=== PATIENT | female | born 1960 ===

== ENCOUNTER 2022-08-14 15:48 | Outpatient (REF) | payer MEDICAID, SELFPAY ==
--- NOTE | ~2022-08-14 | XR_ITS ---
EXAMINATION: XR KNEE, LEFT CLINICAL INFORMATION: Left knee pain COMPARISON: None TECHNIQUE: Two views of the left knee. FINDINGS: No fracture or joint effusion. Alignment is anatomic. Small tricompartmental marginal osteophytes and mild loss of joint space thickness in the medial compartment. No joint effusion. No abnormal soft tissue calcification. XR/XR knee LT 2V IMPRESSION: * No acute findings. * Mild degenerative changes as described.
== END 2022-08-14 15:49 | disposition home or self-care (01) ==
LOC: HO.XRAY 15:48
PROVIDERS: PCP Internal Medicine; Visit Provider Internal Medicine
DX: M25.562 Pain in left knee (principal); G89.29 Other chronic pain
CPT/HCPCS: 73560

== ENCOUNTER 2023-07-26 09:38 | Outpatient (AMB) | payer MEDICAID, SELFPAY ==
--- NOTE | 2023-07-26 10:07 | A.OFFVIS_ITS ---
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 Patient's son was translating for her and she stated ongoing pain for many year with history of injections. Patient has tried and failed 3 + months of tylenol and ibuprofen. No hx of surgery or injury. Both knees are equal to pain per patient. Pain is focused all over the knees. Patient has gotten and injection many years ago with the first one giving her 10 years of relief per patient. She has gotten an other injection from her PCP which gave her a week of relief. 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 The patient reports chronic pain for many years. She has tried and failed 3+ months of Tylenol and Ibuprofen use. She does not recall any injury to the bilateral knees. She reports the left knee is worse then the right knee. She states the pain is through out the entire knee. She reports a history of cortisone injections; the first injection gave her about 10 years of relief and the second injection which was given to her about a month ago, in 06/2023 by her PCP, gave her about 10 days of relief. Patient is accompanied by her son who is translating for her. Review of Systems Const All systems reviewed & are unremarkable except as noted in HPI and below Physical Exam Const General: cooperative and no acute distress Orientation/consciousness: patient oriented x3 Resp Effort & Inspection: normal respiratory effort and able to speak in complete sentences Cardio Peripheral pulses: Peripheral pulses 2+ throughout Skin General skin exam: no rashes or lesions noted Neuro General: patient oriented x3 Extrem Other: Bilateral knees: Normal to inspection. No ecchymosis, erythema, or joint effusion. No tenderness to palpation to the medial or lateral joint lines. Full knee extension and flexion. Crepitus felt with ROM. NVI. Assessment & Plan Assessment & Plan (1) Osteoarthritis of right knee: Code(s): M17.11 - Unilateral primary osteoarthritis, right knee Qualifiers: Osteoarthritis type: unspecified Qualified Code(s): M17.11 - Unilateral primary osteoarthritis, right knee (2) Osteoarthritis of left knee: Code(s): M17.12 - Unilateral primary osteoarthritis, left knee Qualifiers: Osteoarthritis type: unspecified Qualified Code(s): M17.12 - Unilateral primary osteoarthritis, left knee Plan Ms. Walton is a 63-year-old female who presents in the office today, as a new patient, for an evaluation of bilateral knee pain. The patient reports chronic pain for many years. She has tried and failed 3+ months of Tylenol and Ibuprofen use. She does not recall any injury to the bilateral knees. She reports the left knee is worse then the right knee. She states the pain is through out the entire knee. She reports a history of cortisone injections; the first injection gave her about 10 years of relief and the second injection which was given to her about a month ago, in 06/2023 by her PCP, gave her about 10 days of relief. Patient is accompanied by her son who is translating for her. I offered the patient bilateral knee cortisone injections while in the office today but she has declined at this time stating the first gave her 10 years of relief, but the second which she received a month ago from her PCP gave her 10 days of relief. We discussed the role of Gel injections which she would like to move forward with at this time. Therefore the office will petition the insurance for approval. We did discuss the role of total knee arthroplasty which the patient would like to further discuss with her son who is here today as her chassis wirer. I educated that we would proceed with the left knee before the right knee. She was given Magdalena?s business card should she wish to move forward with surgical intervention she can contact the office. I did educate the patient should she want to move forward with surgery she will have to wait 3 months from the time she receives the Gel injection before she can proceed. Her and her son demonstrate understanding. I also provided the patient and her son a prescription for a walker to assist with ambulation. Follow up will be after insurance approval for Gel injections in the bilateral knees, or sooner if needed. X-rays of the bilateral knees which were obtained while in the office today and were reviewed by me, Malika Boyd PA-C, revealed bilateral knee osteoarthritis with the left being greater than the right. Orders: Orders XR knee RT 2V Today M25.569 - Pain in unspecified knee XR knee LT 2V Today M25.569 - Pain in unspecified knee XR knee standing BI Today M25.569 - Pain in unspecified knee Medications: New walker Folding front wheeled walker 1 ea 0RF Lt knee arthritis M17.12 - Unilateral primary osteoarthritis, left knee Patient Instructions: Scribed for Malika Boyd PA-C by Nika Dinh medical records tech, on 07/25/2023 at 9:53 am, EST. Coding Level of Care Code New Pt Level 4 (00892) Diagnoses Osteoarthritis of right knee, unspecified osteoarthritis type M17.11 Osteoarthritis type: unspecified Osteoarthritis of left knee, unspecified osteoarthritis type M17.12 Osteoarthritis type: unspecified
== END 2023-07-26 10:34 | disposition home or self-care (01) ==
PROVIDERS: PCP Internal Medicine; Visit Provider Physician Assistant
DX: M17.0 Bilateral primary osteoarthritis of knee (principal)
CPT/HCPCS: 99204

== ENCOUNTER 2023-07-26 13:09 | Outpatient (REF) | payer MEDICAID, SELFPAY ==
--- NOTE | ~2023-07-26 | XR_ITS ---
EXAMINATION: X-RAY KNEE STANDING BILATERAL. LATERAL AND SUNRISE VIEW X-RAY OF RIGHT AND LEFT KNEES. CLINICAL INFORMATION: Bilateral knee pain. COMPARISON: Left knee x-ray on 08/14/2022. TECHNIQUE: Standing frontal x-ray of bilateral knees, frontal and sunrise view X-rays of right and left knees FINDINGS: BONES: Bony structures are intact. Sharp osteophytes are seen in superior and lateral right patellar articular border. Small osteophyte is seen in superior left patellar articular border. There is no focal bone destruction or periosteal reaction seen. JOINTS: Alignment of joints is normal. There is severe loss of medial compartment left tibiofemoral joint space. There is moderate decrease in medial compartment right knee joint space. SOFT TISSUE: Soft tissue is normal. No radiopaque foreign body or abnormal air collection is seen. XR/XR knee LT 2V IMPRESSION: 1. Bilateral medial compartment tibiofemoral joint and patellofemoral joint degenerative arthritis, left greater than right, most severe in the medial compartment of the left knee. Unchanged advanced medial compartment left tibiofemoral joint osteoarthritis. 2. No acute bony abnormality.
--- NOTE | ~2023-07-26 | XR_ITS ---
EXAMINATION: X-RAY KNEE STANDING BILATERAL. LATERAL AND SUNRISE VIEW X-RAY OF RIGHT AND LEFT KNEES. CLINICAL INFORMATION: Bilateral knee pain. COMPARISON: Left knee x-ray on 08/14/2022. TECHNIQUE: Standing frontal x-ray of bilateral knees, frontal and sunrise view X-rays of right and left knees FINDINGS: BONES: Bony structures are intact. Sharp osteophytes are seen in superior and lateral right patellar articular border. Small osteophyte is seen in superior left patellar articular border. There is no focal bone destruction or periosteal reaction seen. JOINTS: Alignment of joints is normal. There is severe loss of medial compartment left tibiofemoral joint space. There is moderate decrease in medial compartment right knee joint space. SOFT TISSUE: Soft tissue is normal. No radiopaque foreign body or abnormal air collection is seen. XR/XR knee standing BI IMPRESSION: 1. Bilateral medial compartment tibiofemoral joint and patellofemoral joint degenerative arthritis, left greater than right, most severe in the medial compartment of the left knee. Unchanged advanced medial compartment left tibiofemoral joint osteoarthritis. 2. No acute bony abnormality.
--- NOTE | ~2023-07-26 | XR_ITS ---
EXAMINATION: X-RAY KNEE STANDING BILATERAL. LATERAL AND SUNRISE VIEW X-RAY OF RIGHT AND LEFT KNEES. CLINICAL INFORMATION: Bilateral knee pain. COMPARISON: Left knee x-ray on 08/14/2022. TECHNIQUE: Standing frontal x-ray of bilateral knees, frontal and sunrise view X-rays of right and left knees FINDINGS: BONES: Bony structures are intact. Sharp osteophytes are seen in superior and lateral right patellar articular border. Small osteophyte is seen in superior left patellar articular border. There is no focal bone destruction or periosteal reaction seen. JOINTS: Alignment of joints is normal. There is severe loss of medial compartment left tibiofemoral joint space. There is moderate decrease in medial compartment right knee joint space. SOFT TISSUE: Soft tissue is normal. No radiopaque foreign body or abnormal air collection is seen. XR/XR knee RT 2V IMPRESSION: 1. Bilateral medial compartment tibiofemoral joint and patellofemoral joint degenerative arthritis, left greater than right, most severe in the medial compartment of the left knee. Unchanged advanced medial compartment left tibiofemoral joint osteoarthritis. 2. No acute bony abnormality.
== END 2023-07-26 13:10 | disposition home or self-care (01) ==
LOC: HO.HOSX 13:09
PROVIDERS: Visit Provider Physician Assistant
DX: M17.0 Bilateral primary osteoarthritis of knee (principal)
CPT/HCPCS: 73560; 73565; 99212

== ENCOUNTER 2023-08-01 09:43 | Outpatient (AMB) | payer MEDICAID, SELFPAY ==
--- NOTE | 2023-08-01 09:46 | MHC.OFFVIS ---
Intake Intake Visit Reasons: Bilateral Knee SynviscOne Gel Injection Intake Note: Marisela is a 63 year old female who presents today for her bilateral knee SynviscOne gel injections. HPI Bilateral Knee SynviscOne Gel Injection HPI Details 63-year-old female, who is [place] speaking, presents in the office today for a follow up of bilateral knee osteoarthritis and to obtain a synvisc one gel injection. I last saw the patient on 07/26/2023 when the office requested insurance authorization for Gel injections, which has been obtained. Review of Systems Const All systems reviewed & are unremarkable except as noted in HPI and below Physical Exam Const General: cooperative, healthy appearing and no acute distress Resp Effort & Inspection: normal respiratory effort and able to speak in complete sentences Cardio Rate: regular rate Peripheral pulses: Peripheral pulses 2+ throughout GI Palpation (GI): Soft to palpation Skin Lesions: no lesions Rashes: no rashes Extrem Other: Bilateral knees: Normal to inspection. No ecchymosis, erythema, or joint effusion. No tenderness to palpation to the medial or lateral joint lines. Full knee extension and flexion. Crepitus felt with ROM. NVI. Office Procedures Joint Injection/Drain Joint Injection/Drain Primary Site: right knee Secondary Site: left knee Prep: site was prepped using aseptic technique, ethochloride spray was applied and injection warnings given Injected: other (Synvisc One) Approach Used: anterolateral Procedure: The patient tolerated the procedure well, but had some pain with the injection and there was some relief with the local anesthesia Coding 08148 - Large joint Procedure code (CPT) selection complete Assessment & Plan Assessment & Plan (1) Osteoarthritis of right knee: Code(s): M17.11 - Unilateral primary osteoarthritis, right knee Qualifiers: Osteoarthritis type: unspecified Qualified Code(s): M17.11 - Unilateral primary osteoarthritis, right knee (2) Osteoarthritis of left knee: Code(s): M17.12 - Unilateral primary osteoarthritis, left knee Qualifiers: Osteoarthritis type: unspecified Qualified Code(s): M17.12 - Unilateral primary osteoarthritis, left knee Plan Ms. Walton is a 63-year-old female, who is [place]an speaking, presents in the office today for a follow up of bilateral knee osteoarthritis and to obtain a synvisc one gel injection . I last saw the patient on 07/26/2023 when the office requested insurance authorization for Gel injections, which has been obtained. The patient was offered a Synvisc One gel injection in the bilateral knees. The patient was explained the risk, benefits, and alternatives to receiving this injection. After receiving consent for the injection, the patient had the procedure done while in office today. The patient tolerated the procedure well with no complications. Follow up will be PRN, or sooner if needed. Patient Instructions: Scribed for Malika Boyd PA-C by Nika Dinh medical review specialist, on 08/01/2023 at 9:45 am, EST. Coding Level of Care Code Procedure Only Diagnoses Osteoarthritis of right knee, unspecified osteoarthritis type M17.11 Osteoarthritis type: unspecified Osteoarthritis of left knee, unspecified osteoarthritis type M17.12 Osteoarthritis type: unspecified CPT Codes Coding - 92131 Large joint: 70841 - Large joint ([id number])
== END 2023-08-01 11:01 | disposition home or self-care (01) ==
PROVIDERS: PCP Internal Medicine; Visit Provider Physician Assistant
DX: M17.0 Bilateral primary osteoarthritis of knee (principal)
CPT/HCPCS: 20610

== ENCOUNTER → 2023-08-01 09:43 | Outpatient (BNVA) | payer MEDICAID, SELFPAY | PROVIDERS: PCP Internal Medicine; Visit Provider Physician Assistant | DX: M17.0 Bilateral primary osteoarthritis of knee (principal) | CPT/HCPCS: 20610; J7325 ==

== ENCOUNTER 2023-08-26 09:15 | Outpatient (AMB) | payer MEDICAID, SELFPAY ==
--- NOTE | 2023-08-25 13:47 | MHC.OFFVIS ---
Intake Vital Signs 08/26/23 09:21 Height 5 ft 2 in Weight 229 lb 4.492 oz BMI 41.9 Intake Visit Reasons: Discuss RT TKA Intake Note: Marisela is a 73 year old botswanan speaking female who presents today with her son to discuss possible surgery for the right knee, Right TKA Synvisc One 08/01/23, this injection has been mildly helpful Allergies No Known Allergies Allergy (Verified 08/26/23 09:18) HPI Discuss RT TKA HPI Details This is a 63 yo F with bilateral knee OA. She has had injections of steroid and gel but with only minimal relief. She is here today with her son. She cannot walk comfortably and has pain with all daily activities. She would like to walk and garden and use her pool but she cannot. Review of Systems Const All systems reviewed & are unremarkable except as noted in HPI and below Physical Exam Vital Signs: BMI result Body Mass Index 41.9 Const General: no acute distress, alert and awake Orientation/consciousness: patient oriented x3 HEENT Head: Yes normocephalic and Yes atraumatic Eyes EOM: EOMs intact bilaterally Resp Effort & Inspection: normal respiratory effort and able to speak in complete sentences Cardio Jugular venous distension: no JVD Skin General skin exam: turgor normal Rashes: no rashes Neuro General: patient oriented x3 Extrem Other: 5-115 bilateral knees with sharp medial and anterior compartment ttp bilaterally although right > left. She has gait antalgia 2 + DP bilaterally Psych Appearance: grossly normal Affect: normal affect Attitude: cooperative Results Reviewed Results Reviewed: I personally reviewed relevant radiographs. Severe left knee OA most prominently affecting the medial compartment Severe right knee OA most prominently affecting the PF joint Assessment & Plan Assessment & Plan (1) Osteoarthritis of left knee: Code(s): M17.12 - Unilateral primary osteoarthritis, left knee Qualifiers: Osteoarthritis type: unspecified Qualified Code(s): M17.12 - Unilateral primary osteoarthritis, left knee Plan: Severe OA. Arthroplasty indicated but right is more painful. (2) Osteoarthritis of right knee: Code(s): M17.11 - Unilateral primary osteoarthritis, right knee Qualifiers: Osteoarthritis type: unspecified Qualified Code(s): M17.11 - Unilateral primary osteoarthritis, right knee Plan: Left knee with severe OA. She has pain with all activity and her ambulatory capacity is limited. I discussed treatment options with her. She feels that nothing has helped and she would like to be more active. I recommend right knee arthroplasty. I discussed this with her in detail. I explained and discussed the risks benefits and alternatives including but not limited to the risk of pain, infection, stiffness, need for further surgery as well as potential medical complications such as blood clots, pulmonary embolism and cardiac complications. She understands this and would like to proceed forward. Coding Level of Care Code Est Pt Level 4 (28303) Diagnoses Osteoarthritis of left knee, unspecified osteoarthritis type M17.12 Osteoarthritis type: unspecified Osteoarthritis of right knee, unspecified osteoarthritis type M17.11 Osteoarthritis type: unspecified
[2023-08-26 09:21] VITALS: BMI 41.9
== END 2023-08-26 10:24 | disposition home or self-care (01) ==
PROVIDERS: PCP Internal Medicine; Visit Provider Orthopaedic Surgery
DX: M17.0 Bilateral primary osteoarthritis of knee (principal)
CPT/HCPCS: 99214

== ENCOUNTER → 2023-08-26 09:15 | Outpatient (BNVA) | payer MEDICAID, SELFPAY | PROVIDERS: PCP Internal Medicine; Visit Provider Orthopaedic Surgery | DX: M17.12 Unilateral primary osteoarthritis, left knee (principal); M17.11 Unilateral primary osteoarthritis, right knee | CPT/HCPCS: 99212 ==

== ENCOUNTER → 2023-10-07 10:04 | Outpatient (BNVA) | payer MEDICAID, SELFPAY | PROVIDERS: PCP Internal Medicine; Visit Provider Orthopaedic Surgery ==

== ENCOUNTER → 2023-10-07 10:04 | Outpatient (BNVA) | payer MEDICAID, SELFPAY | PROVIDERS: PCP Internal Medicine; Visit Provider Orthopaedic Surgery ==

== ENCOUNTER 2023-10-16 14:53 | Outpatient (REF) | payer MEDICAID, SELFPAY ==
[2023-10-16 17:51] LABS: MANUAL DIFF FLAG NO
[2023-10-16 18:10] LABS: INTERNATIONAL NORM RATIO 0.9 (0.9-1.1)
[2023-10-16 18:18] LABS: Basophils Percent Auto 0.3 % (0-2); Eosinophils Absolute Auto 0.2 X10*3/uL (0.0-0.4); Eosinophils Percent Auto 2.2 % (0-4); Hematocrit 36.2 % (37.0-47.0); Hemoglobin 11.9 g/dl (12.0-16.0); Imm Gran Abs Auto 0.03 X10*3/uL (0.00-0.03); Imm Gran Pct Auto 0.4 % (0.0-0.4); Lymphocytes Percent Auto 28.1 % (20-40); Mean Corpuscular HGB Conc 32.9 g/dl (31.0-35.0); Mean Corpuscular Hemoglobin 26.9 pg (27.0-33.0); Mean Corpuscular Volume 81.7 fL (80.0-98.0); Mean Platelet Volume 10.3 fL (9.4-12.3); Monocytes Absolute Auto 0.4 X10*3/uL (0.1-1.2); Monocytes Percent Auto 5.5 % (2-11); Neutrophils Absolute Auto 4.4 x10*3/uL (2.0-8.3); Neutrophils Percent Auto 63.5 % (45-73); Platelet Count 323 X10*3/uL (160-400); Red Blood Count 4.43 X10*6/uL (4.20-5.50); Red Cell Distribution Width 13.1 % (11.0-16.0)
[2023-10-16 18:35] LABS: Alanine Aminotransferase 23 U/L (0-31); Albumin Level 3.9 g/dL (3.5-5.0); Alkaline Phosphatase 90 U/L (39-117); Anion Gap 11 (12-20); Aspartate Amino Transferase 24 U/L (5-31); Bilirubin Total 0.3 mg/dL (0.0-1.0); Blood Urea Nitrogen 21 mg/dL (9-16); Calcium 9.3 mg/dL (8.4-10.2); Carbon Dioxide 27 mmol/L (22-29); Chloride 104 mmol/L (96-108); Cholesterol 219 mg/dL (<200); Estimated Glomerular Filt Rate > 60; Glucose Random 237 mg/dL (60-115); HDL Cholesterol 40 mg/dL (>40); LDL Cholesterol Calculated 120 mg/dL (<100); Potassium 4.4 mmol/L (3.3-5.1); Sodium 138 mmol/L (135-145); Total Protein 7.8 g/dL (6.5-8.0); Triglycerides 297 mg/dL (<150)
[2023-10-16 18:51] LABS: TSH reflex Free T4 2.12 uIU/mL (0.32-4.0)
== END 2023-10-16 14:54 | disposition home or self-care (01) ==
LOC: HO.CHCLDS 14:53
PROVIDERS: Visit Provider Internal Medicine
DX: Z01.818 Encounter for other preprocedural examination (principal); E11.65 Type 2 diabetes mellitus with hyperglycemia; Z79.4 Long term (current) use of insulin
CPT/HCPCS: 36415; 80053; 80061; 84443; 85025; 85610; 85730

== ENCOUNTER 2023-12-31 15:20 | Outpatient (REF) | payer MEDICAID, SELFPAY ==
[2023-12-31 19:08] LABS: Hematocrit 35.9 % (37.0-47.0); Hemoglobin 12.1 g/dl (12.0-16.0); Mean Corpuscular HGB Conc 33.7 g/dl (31.0-35.0); Mean Corpuscular Hemoglobin 27.4 pg (27.0-33.0); Mean Corpuscular Volume 81.4 fL (80.0-98.0); Mean Platelet Volume 10.4 fL (9.4-12.3); Platelet Count 333 X10*3/uL (160-400); Red Blood Count 4.41 X10*6/uL (4.20-5.50); Red Cell Distribution Width 13.3 % (11.0-16.0); White Blood Count 7.9 X10*3/uL (4.8-10.8)
[2023-12-31 19:38] LABS: Alanine Aminotransferase 16 U/L (0-31); Albumin Level 4.3 g/dL (3.5-5.0); Alkaline Phosphatase 87 U/L (39-117); Anion Gap 14 (12-20); Aspartate Amino Transferase 14 U/L (5-31); Bilirubin Total 0.4 mg/dL (0.0-1.0); Blood Urea Nitrogen 13 mg/dL (9-16); Calcium 9.8 mg/dL (8.4-10.2); Carbon Dioxide 24 mmol/L (22-29); Chloride 105 mmol/L (96-108); Estimated Glomerular Filt Rate 58; Glucose Random 157 mg/dL (60-115); Potassium 4.8 mmol/L (3.3-5.1); Sodium 138 mmol/L (135-145)
[2024-01-01 07:09] LABS: Estimated Average Glucose 197 mg/dL; Hemoglobin A1c % 8.5 % (<6.0)
== END 2023-12-31 15:21 | disposition home or self-care (01) ==
LOC: HO.CHCLDS 15:20
PROVIDERS: Visit Provider Internal Medicine
DX: Z01.818 Encounter for other preprocedural examination (principal)
CPT/HCPCS: 36415; 80053; 83036; 85027

== ENCOUNTER 2024-01-23 09:05 | Outpatient (REF) | payer MEDICAID, SELFPAY ==
--- NOTE | ~2024-01-23 | XR_ITS ---
EXAMINATION: XR KNEE RIGHT XR KNEE RIGHT CLINICAL INFORMATION: The radiographs from 01/23/2024 were acquired with history of pain. The radiographs from 01/29/2024 were acquired with history of total knee arthroplasty. COMPARISON: 07/26/2023 TECHNIQUE: 01/23/2024 - This examination consists of lateral view and sunrise view of right knee as well as AP standing view of both knees. 01/29/2024 - This examination consists of AP and lateral views of the right knee. FINDINGS: The AP standing views show moderate loss of medial tibiofemoral joint space and osteophyte formation at each knee. At the right knee, there is severe narrowing of patellofemoral joint space with subchondral cystic change, osteophyte formation and mild lateral patellar subluxation. Trace amount of fluid is present in the suprapatellar compartment of the knee joint. The postoperative radiographs demonstrate anterior skin kyle, anterior soft tissue swelling and intra-articular gas from the total knee arthroplasty. There is anatomic alignment at patellofemoral and tibiofemoral compartments. No abnormal lucency or fracture around the hardware. XR/XR knee RT 3V IMPRESSION: * The radiographs from 01/23/2024 demonstrate tricompartmental osteoarthritis of the right knee. The joint degeneration was severe at the patellofemoral compartment and moderate at the medial tibiofemoral compartment. * The radiographs from 01/29/2024 were obtained after the total knee arthroplasty procedure. The prosthetic components are in normal position. No periprosthetic fracture.
== END 2024-01-23 09:06 | disposition home or self-care (01) ==
LOC: HO.HOSX 09:05
PROVIDERS: Visit Provider Physician Assistant
DX: M17.11 Unilateral primary osteoarthritis, right knee (principal)
CPT/HCPCS: 73562; 99212

== ENCOUNTER 2024-01-23 09:30 | Outpatient (AMB) | payer MEDICAID, SELFPAY ==
--- NOTE | 2024-01-23 09:42 | A.OFFVIS_ITS ---
Intake Visit Reasons: pre-op right TKA 01/29/24 with NE Intake Note: Marisela is a 64 year old female who presents today with her son for a pre op appointment for her right TKA 01/29/24 with NE. Allergies gabapentin Allergy (Mild, Verified 01/23/24 09:45) Hives HPI HPI pre-op right TKA 01/29/24 with NE: Details: 64-year-old female who presents in the office today for her preoperative history and physical exam prior to a right total knee arthroplasty to be performed on 01/29/[address] Gibson Rivera. Patient has an allergy history, as follows: -Gabapentin; hives Patient is currently taking, as follows: -Acetaminophen 1,000 mg PO QID PRN -Amlodipine 5 mg PO QAM -Aspirin 81 mg PO daily -Glipizide 10 mg PO BID -Insulin glargine 35 units subcut bedtime -Losartan 100 mg PO QAM -Omeprazole 20 mg PO daily -Rosuvastatin 20 mg PO daily Patient has a medical history, as follows: -Diabetes mellitus -GERD -Elevated cholesterol -Hypertension Patient has a surgical history, as follows: -Hx of left shoulder surgery -Hx of trabeculectomy PFSH Medical History (Updated 01/20/24 @ 13:49 by Ceci Colorado, SUMANTH) Numbness Snores Osteoarthritis Diabetes GERD (gastroesophageal reflux disease) Elevated cholesterol HTN (hypertension) Surgical History (Updated 01/20/24 @ 13:29 by Ceci Colorado, RN) Hx of shoulder surgery History of trabeculectomy Social History (Updated 01/20/24 @ 13:43 by Ceci Colorado, RN) Household Members: Family and Other Housing: House Are you a primary child daycare worker to a significant other at home: No Do you presently have visiting nurse or other home services: No Patient Tobacco Use Status: Never used Tobacco Use of substances other than those prescribed or required for medical reasons: No Have you been hit, kicked, punched, or otherwise hurt by someone within the past year? If so, by whom?: No Special agnes needs: No Agree to transfusion: Yes ( if needed yes ) Are you DNR?: No Advance Directives: No Advance Directives Information Provided: Yes Advance Directives on File: No Recently lost weight without trying: No Nutrition Risks: No Nutritional Risk Current occupational status: unemployed Review of Systems Const All systems reviewed & are unremarkable except as noted in HPI and below Physical Exam Const General: cooperative, healthy appearing, comfortable, no acute distress, well developed, alert and awake Orientation/consciousness: patient oriented x3 HEENT Head: Yes normal to inspection, Yes normocephalic and Yes atraumatic Eyes General: appearance normal, both eyes and all related structures EOM: EOMs intact bilaterally Neck Neck: Yes normal visual inspection and Yes no lymphadenopathy Resp Effort & Inspection: normal respiratory effort and able to speak in complete sentences Cardio Jugular venous distension: no JVD Rate: regular rate Peripheral pulses: Peripheral pulses 2+ throughout GI Inspection: Yes normal to inspection Palpation (GI): Soft to palpation Skin General skin exam: no rashes or lesions noted Rashes: no rashes Neuro General: patient oriented x3 Extrem Other: Right knee: Skin is clean, dry, and intact. 5-115 bilateral knees with sharp medial and anterior compartment ttp bilaterally although right > left. She has gait antalgia 2 + DP bilaterally Psych Appearance: grossly normal Mental Status: mental status grossly normal Affect: normal affect Attitude: cooperative Assessment & Plan Assessment & Plan (1) Osteoarthritis of right knee: Code(s): M17.11 - Unilateral primary osteoarthritis, right knee Category: Medical Qualifiers: Osteoarthritis type: unspecified Qualified Code(s): M17.11 - Unilateral primary osteoarthritis, right knee Plan Ms. Walton is a 64-year-old female who presents in the office today for her preoperative history and physical exam prior to a right total knee arthroplasty to be performed on 01/29/[address] Gibson Rivera. Patient has an allergy history, as follows: -Gabapentin; hives Patient is currently taking, as follows: -Acetaminophen 1,000 mg PO QID PRN -Amlodipine 5 mg PO QAM -Aspirin 81 mg PO daily -Glipizide 10 mg PO BID -Insulin glargine 35 units subcut bedtime -Losartan 100 mg PO QAM -Omeprazole 20 mg PO daily -Rosuvastatin 20 mg PO daily Patient has a medical history, as follows: -Diabetes mellitus -GERD -Elevated cholesterol -Hypertension Patient has a surgical history, as follows: -Hx of left shoulder surgery -Hx of trabeculectomy I discussed in detail the procedure and what to expect pre and post operatively. We discussed the risks, benefits and alternatives to the surgery and the rehabilitation course. The risks include infection, bleeding, nerve injury, ongoing pain, swelling, and stiffness, perioperative risk of injury to bones and soft tissues, and blood clots. I have answered all questions and with their understanding they have consented to move forward with a right total knee arthroplasty to be performed on 01/29/[address] Gibson Rivera. Follow-up will be at the post operative appointment on 02/17/2024 at 2:15 pm, or sooner if needed. X-rays were obtained in the office today for surgical planning. Orders: Orders XR knee RT 3V Today M25.569 - Pain in unspecified knee Patient Instructions: Scribed by Nika Dinh director medical safety, for Malika Boyd PA-C on 01/23/2024 at 9:42 am, EST. Coding Level of Care Code Global (27526) Diagnoses Osteoarthritis of right knee, unspecified osteoarthritis type M17.11 Osteoarthritis type: unspecified
== END 2024-01-23 10:00 | disposition home or self-care (01) ==
PROVIDERS: PCP Internal Medicine; Visit Provider Physician Assistant
DX: M17.11 Unilateral primary osteoarthritis, right knee (principal)
CPT/HCPCS: 99024

== ENCOUNTER 2024-01-29 06:47 | Inpatient (IN) | payer MEDICAID, SELFPAY ==
[2024-01-20 13:51] VITALS: BP 158/74; PULSE 93; RESP 16; O2SAT 96; BMI 40.3
--- NOTE | 2024-01-20 14:07 | HO.ANESPROP2 ---
Documented by User: Marizol Parham NP 01/27/24 14:43 HPI - Anesthesia Eval Consult details Narrative: 64yo F for Right Knee Replacement Total, 01/29/24 Medically optimized per PCP No recent illness No CP/SOB within limits of knee pain DM: ~110-120 GERD: ppi daily controls + Stop bang: moderate BENJIE risk PMFSH Active Problems Active Problems: All Active Problems Osteoarthritis of left knee (Acute) Osteoarthritis of right knee (Acute) Past Medical History Medical History Numbness Snores Osteoarthritis Diabetes GERD (gastroesophageal reflux disease) Elevated cholesterol HTN (hypertension) Family History Family history of problems with anesthesia: No Surgical History Surgical History Hx of shoulder surgery History of trabeculectomy History of Problems with Anesthesia: No Social History Social History Household Members: Family and Other Housing: House Are you a primary career counselor to a significant other at home: No Do you presently have visiting nurse or other home services: No Patient Tobacco Use Status: Never used Tobacco Use of substances other than those prescribed or required for medical reasons: No Have you been hit, kicked, punched, or otherwise hurt by someone within the past year? If so, by whom?: No Special agnes needs: No Agree to transfusion: Yes ( if needed yes ) Are you DNR?: No Advance Directives: No Advance Directives Information Provided: Yes Advance Directives on File: No Recently lost weight without trying: No Nutrition Risks: No Nutritional Risk Current occupational status: unemployed Meds Allergies Allergy/AdvReac Type Severity Reaction Status Date / Time gabapentin Allergy Mild Hives Verified 01/23/24 09:45 Home Medications ?Medication ?Instructions ?Recorded ?Confirmed ?Last Taken ?Type aspirin 81 mg tablet,delayed 81 mg PO DAILY 08/26/23 01/20/24 Unknown History release glipizide 5 mg tablet 10 mg PO BID 08/26/23 01/20/24 Unknown History insulin glargine 100 unit/mL (3 35 unit subcut BEDTIME 08/26/23 01/20/24 Unknown History mL) subcutaneous pen (Lantus Solostar U-100 Insulin) losartan 100 mg tablet 100 mg PO QAM 08/26/23 01/20/24 Unknown History omeprazole 20 mg capsule,delayed 20 mg PO DAILY 08/26/23 01/20/24 01/29/24 History release rosuvastatin 20 mg tablet 20 mg PO DAILY 08/26/23 01/20/24 Unknown History acetaminophen 500 mg tablet 1,000 mg PO QID PRN Pain 01/20/24 01/20/24 Unknown History amlodipine 5 mg tablet 5 mg PO QAM 01/20/24 01/20/24 01/29/24 History Exam Height,Weight and Vital Signs: Height 5 ft 3 in Weight 103.3 kg Last Vital Signs Pulse 93 01/20/24 13:51 Resp 16 01/20/24 13:51 BP 158/74 H 01/20/24 13:51 Pulse Ox 96 01/20/24 13:51 O2 Del Method Room Air 01/20/24 13:51 Pertinent Lab Results Pertinent Lab Results: CBC and BMP 12/2023 WNL A1C 8.5% - surgeon aware Narrative Narrative: EKG 10/2023 NSR Airway Mallampati Class: II TM Dist: >3cm Neck ROM: Full Denture: Upper Loose/Missing/Broken Teeth: Yes (Permanent bridge lower front, missing lower molars (4 pt's own teeth remain)) Heart: RRR Lungs: CTAB Assessment and Plan Assessment Anesthesia Assessment: Anesthesia Plan Discussed and PAT Visit Final Anesthetic Review Family History of Problems with Anesthesia: No History of Problems with Anesthesia: No Documented by User: Lainey Souza MD 01/29/24 08:07 PMFSH Past Medical History Medical History Numbness Snores Osteoarthritis Diabetes GERD (gastroesophageal reflux disease) Elevated cholesterol HTN (hypertension) Surgical History Surgical History Hx of shoulder surgery History of trabeculectomy Social History Social History Household Members: Family and Other Housing: House Are you a primary career counselor to a significant other at home: No Do you presently have visiting nurse or other home services: No Patient Tobacco Use Status: Never used Tobacco Use of substances other than those prescribed or required for medical reasons: No Have you been hit, kicked, punched, or otherwise hurt by someone within the past year? If so, by whom?: No Special agnes needs: No Agree to transfusion: Yes ( if needed yes ) Are you DNR?: No Advance Directives: No Advance Directives Information Provided: Yes Advance Directives on File: No Recently lost weight without trying: No Nutrition Risks: No Nutritional Risk Current occupational status: unemployed Meds Allergies Allergy/AdvReac Type Severity Reaction Status Date / Time gabapentin Allergy Mild Hives Verified 01/23/24 09:45 Home Medications ?Medication ?Instructions ?Recorded ?Confirmed ?Last Taken ?Type aspirin 81 mg tablet,delayed 81 mg PO DAILY 08/26/23 01/20/24 Unknown History release glipizide 5 mg tablet 10 mg PO BID 08/26/23 01/20/24 Unknown History insulin glargine 100 unit/mL (3 35 unit subcut BEDTIME 08/26/23 01/20/24 Unknown History mL) subcutaneous pen (Lantus Solostar U-100 Insulin) losartan 100 mg tablet 100 mg PO QAM 08/26/23 01/20/24 Unknown History omeprazole 20 mg capsule,delayed 20 mg PO DAILY 08/26/23 01/20/24 01/29/24 History release rosuvastatin 20 mg tablet 20 mg PO DAILY 08/26/23 01/20/24 Unknown History acetaminophen 500 mg tablet 1,000 mg PO QID PRN Pain 01/20/24 01/20/24 Unknown History amlodipine 5 mg tablet 5 mg PO QAM 01/20/24 01/20/24 01/29/24 History Exam Airway Mallampati Class: II Neck ROM: Limited Denture: Upper Assessment and Plan Final Anesthetic Review NPO: Yes ASA Class: III Final Preanesthetic Review: No Changes in Pt Med Stat, Meds/Allgs Chart Reviewed, Consent Obtained/Reviewed and Anes Risks/Benef Reviewed Patient Risk: Intermediate Procedure Risk: Intermediate Anesthetic Plan Anesthetic Plan: Spinal and Regional Block Disposition: Standard PACU
[2024-01-20 16:10] LABS: MRSA Nasal PCR NEGATIVE (Negative); SA Nasal PCR POSITIVE (Negative)
[2024-01-29] VITALS (14 sets, daily range): BP systolic 85–144; BP diastolic 50–82; PULSE 80–90; RESP 12–18; TEMP 36–36.7; O2SAT 94–99
--- NOTE | ~2024-01-29 | XR_ITS ---
EXAMINATION: XR KNEE RIGHT XR KNEE RIGHT CLINICAL INFORMATION: The radiographs from 01/23/2024 were acquired with history of pain. The radiographs from 01/29/2024 were acquired with history of total knee arthroplasty. COMPARISON: 07/26/2023 TECHNIQUE: 01/23/2024 - This examination consists of lateral view and sunrise view of right knee as well as AP standing view of both knees. 01/29/2024 - This examination consists of AP and lateral views of the right knee. FINDINGS: The AP standing views show moderate loss of medial tibiofemoral joint space and osteophyte formation at each knee. At the right knee, there is severe narrowing of patellofemoral joint space with subchondral cystic change, osteophyte formation and mild lateral patellar subluxation. Trace amount of fluid is present in the suprapatellar compartment of the knee joint. The postoperative radiographs demonstrate anterior skin kyle, anterior soft tissue swelling and intra-articular gas from the total knee arthroplasty. There is anatomic alignment at patellofemoral and tibiofemoral compartments. No abnormal lucency or fracture around the hardware. XR/XR knee RT 2V IMPRESSION: * The radiographs from 01/23/2024 demonstrate tricompartmental osteoarthritis of the right knee. The joint degeneration was severe at the patellofemoral compartment and moderate at the medial tibiofemoral compartment. * The radiographs from 01/29/2024 were obtained after the total knee arthroplasty procedure. The prosthetic components are in normal position. No periprosthetic fracture.
--- NOTE | 2024-01-29 07:15 | MHC.SHP ---
Pre-Procedural Eval Section A - 24 Hr Update-Section A only Date of Service: 01/29/24 The patient is an INPATIENT: No Changes since office visit: No Cold of Flu in the past 2 weeks, No New Medical Problems, No Changes in Medication and No Patient answered all questions The patient has been examined within 24 hours of the surgical procedure. The History & Physical has been completed within 30 days and I have reviewed it.: Yes Section B - Complete if H&P > 30 days Chief Complaint: R TKA Allergies: Allergies Allergy/AdvReac Type Severity Reaction Status Date / Time gabapentin Allergy Mild Hives Verified 01/23/24 09:45 Plan I have reviewed the history and physical and performed a pertinent physical examination on my patient. No changes have occurred unless specified. Time Spent With Patient Time: Total time managing care of this patient today ____ minutes.
[2024-01-29 08:02] LABS: Glucose, Whole Blood 144 mg/dL (60-115)
[2024-01-29] MEDS: Lactated Ringers 1,000 ML 100 ML IVCONT ×2 (08:12→14:51)
--- NOTE | 2024-01-29 08:15 | PHA.MEDREC ---
Pharmacy Consult ? Medication Reconciliation Pharmacy has completed the medication reconciliation. Reviewed med rec done by nursing.
--- NOTE | 2024-01-29 10:33 | P.BOP_ITS ---
Brief Operative Note Date of Service: 01/29/24 Pre-op diagnosis: Right knee OA Post-op diagnosis: same Procedure: Right TKA Implants: Seth Triathlon posterior stabilized cemented 10/12/09/29a Surgeon: Gibson Rivera MD Anesthesia: regional Was an Inclusion Intern used for this Procedure?: Yes Inclusion Intern: Malika Boyd Estimated blood loss (mL): 20 Tourniquet time (min): 52 IV fluids (mL): 1,000 Pathology: other Condition: stable Disposition: PACU
[2024-01-29 12:25] LABS: Glucose, Whole Blood 166 mg/dL (60-115)
[2024-01-29 13:47] LABS: Glucose, Whole Blood 178 mg/dL (60-115)
[2024-01-29] MEDS: amLODIPine Besylate 5 MG TABLET PO (14:51)
[2024-01-29] MEDS: Losartan Potassium 50 MG TABLET 100 MG PO (14:51)
[2024-01-29] MEDS: ceFAZolin Sodium/Dextrose,Iso 2 GM/50 ML PIGGYBACK IV (14:51)
[2024-01-29] MEDS: 0.9 % Sodium Chloride Flush 3 ML SYRINGE IVFLUSH (14:52)
--- NOTE | 2024-01-29 15:49 | P.CONHOSP_ITS ---
History of Present Illness Data of Consult Service Date: 01/29/24 Primary Care Provider: Issa Laird MD HPI 64-year-old woman admitted by Orthopedic surgery and is status post right total knee arthroplasty. Surgery was unremarkable. Patient has been able to drink without any nausea or vomiting. Patient is hemodynamically stable. Labs within acceptable limits. Patient has no acute medical complaints at this time. Review of Systems Review of Systems: Denies any recent fever chills or decrease in appetite respiratory denies any shortness of breath or cough cardiovascular denies chest pain gastrointestinal denies any dysphagia abdominal pain nausea vomiting or diarrhea genitourinary denies any dysuria frequency or hematuria musculoskeletal denies any joint pain or swelling neuropsych denies any weakness or seizures all other systems reviewed are negative PMFSH Medical History Numbness Snores Osteoarthritis Diabetes GERD (gastroesophageal reflux disease) Elevated cholesterol HTN (hypertension) Surgical History Hx of shoulder surgery History of trabeculectomy Social History Household Members: Children Housing: House Are you a primary hospice care transitions coordinator to a significant other at home: No Do you presently have visiting nurse or other home services: Yes ([facility]NA) Patient Tobacco Use Status: Never used Tobacco Use of substances other than those prescribed or required for medical reasons: No Have you been hit, kicked, punched, or otherwise hurt by someone within the past year? If so, by whom?: No Do you feel safe in your current relationship?: No Current Relationship Is there a partner from a previous relationship who is making you feel unsafe now?: No Are you made to feel afraid or neglected: No Special agnes needs: No Agree to transfusion: Yes ( if needed yes ) Are you DNR?: No Advance Directives: No Advance Directives Information Provided: Yes Advance Directives on File: No Do you have a plan to hurt others: No Plan Recently lost weight without trying: No How much weight loss: Not applicable Eating poorly because of decreased appetite: No Nutrition screen score: 0 Nutrition Risks: No Nutritional Risk Patient : No : No Poor oral hygiene: No Current occupational status: unemployed Meds Allergies Allergy/AdvReac Type Severity Reaction Status Date / Time gabapentin Allergy Mild Hives Verified 01/23/24 09:45 Active Medications: Current Medications Acetaminophen (Acetaminophen 325 Mg Tablet) 650 mg PO Q6H PRN PRN Reason: Pain, Mild (Pain Scale 1-3), fever or headache Amlodipine Besylate (Amlodipine Besylate 5 Mg Tablet) 5 mg PO DAILY@0900 [facility]; Protocol Last Admin: 01/29/24 14:51 Dose: 5 mg Aspirin (Aspirin 325 Mg Tablet) 325 mg PO BID [facility] Atorvastatin Calcium (Atorvastatin Calcium 80 Mg Tablet) 80 mg PO DAILY [facility] Calcium Carbonate (Calcium Carbonate 750 Mg Tab.Chew) 750 mg PO Q4H PRN PRN Reason: Heartburn Celecoxib (Celecoxib 200 Mg Capsule) 200 mg PO BID [facility] Glipizide (Glipizide 10 Mg Tablet) 10 mg PO BID [facility] Hydromorphone HCl (Hydromorphone Hcl 0.5 Mg/0.5 Ml Syringe) 0.25 mg IVPUSH Q4H PRN; Protocol PRN Reason: Pain, Severe (Pain Scale 7-10) Lactated Ringer's (Lr) 1,000 mls @ 100 mls/hr IVCONT .Q10H [facility] Last Admin: 01/29/24 14:51 Dose: 100 mls/hr Insulin Glargine (Insulin Glargine,Hum.Rec.Anlog 100 Unit/Ml 10 Ml Vial) 35 unit SUBCUT BEDTIME [facility] Losartan Potassium (Losartan Potassium 50 Mg Tablet) 100 mg PO DAILY [facility]; Protocol Last Admin: 01/29/24 14:51 Dose: 100 mg Magnesium Hydroxide (Milk Of Magnesia 30 Ml Oral.Susp) 30 ml PO DAILY PRN PRN Reason: Constipation Melatonin (Melatonin 3 Mg Tablet) 6 mg PO BEDTIME PRN PRN Reason: Insomnia Omeprazole (Omeprazole 20 Mg Capsule.Dr) 20 mg PO DAILY@0630 [facility] Ondansetron HCl (Ondansetron Hcl 4 Mg/2 Ml Vial) 4 mg IVPUSH Q8H PRN PRN Reason: Nausea and Vomiting Oxycodone HCl (Oxycodone Hcl Immed Release 5 Mg Tablet) 5 mg PO Q4H PRN PRN Reason: Pain, Moderate(Pain Scale 4-6) Oxycodone HCl (Oxycodone Hcl Er 10 Mg Tab.Er.12h) 10 mg PO BID [place] Sodium Chloride (0.9 % Sodium Chloride Flush 3 Ml Syringe) 3 ml IVFLUSH QSHIFT [facility] Last Admin: 01/29/24 14:52 Dose: 3 ml Home Medications ?Medication ?Instructions ?Recorded ?Confirmed ?Last Taken ?Type aspirin 81 mg tablet,delayed 81 mg PO DAILY 08/26/23 01/20/24 Unknown History release glipizide 5 mg tablet 10 mg PO BID 08/26/23 01/20/24 Unknown History insulin glargine 100 unit/mL (3 35 unit subcut BEDTIME 08/26/23 01/20/24 Unknown History mL) subcutaneous pen (Lantus Solostar U-100 Insulin) losartan 100 mg tablet 100 mg PO QAM 08/26/23 01/20/24 Unknown History omeprazole 20 mg capsule,delayed 20 mg PO DAILY 08/26/23 01/20/24 01/29/24 History release rosuvastatin 20 mg tablet 20 mg PO DAILY 08/26/23 01/20/24 Unknown History acetaminophen 500 mg tablet 1,000 mg PO QID PRN Pain 01/20/24 01/20/24 Unknown History amlodipine 5 mg tablet 5 mg PO QAM 01/20/24 01/20/24 01/29/24 History Physical Exam Vital Signs and Narrative: Vital Signs: Last Vital Signs Temp 97.9 F 01/29/24 15:36 Pulse 87 01/29/24 15:36 Resp 18 01/29/24 15:36 BP 117/58 L 01/29/24 15:36 Pulse Ox 97 01/29/24 15:36 O2 Del Method Room Air 01/29/24 15:36 BMI result Body Mass Index 40.3 Appearing in no acute distress head is normocephalic atraumatic eyes pupils are PERRLA sclera is anicteric mouth throat mucous membranes are intact and moist neck is supple no lymphadenopathy, no JVD noted lung sounds are clear to auscultation heart regular rate rhythm, clear S1, S2 positive bowel sounds, abdomen is soft, nontender neuro patient is alert x3, no focal deficits Right lower extremity surgical incision not visualized, surgical dressing intact Results Labs Labs: Laboratory Results - last 24 hr 01/29/24 01/29/24 01/29/24 07:58 12:21 13:43 POC Glucose 144 H 166 H 178 H Imaging Radiologist's Impressions: Impressions Knee X-Ray 01/29/24 11:12 IMPRESSION: * The radiographs from 01/23/2024 demonstrate tricompartmental osteoarthritis of the right knee. The joint degeneration was severe at the patellofemoral compartment and moderate at the medial tibiofemoral compartment. * The radiographs from 01/29/2024 were obtained after the total knee arthroplasty procedure. The prosthetic components are in normal position. No periprosthetic fracture. Assessment and Plan (1) Osteoarthritis of right knee: Qualifiers: Osteoarthritis type: unspecified Qualified Code(s): M17.11 - Unilateral primary osteoarthritis, right knee Status: Acute Plan 64-year-old woman admitted for right total knee arthroplasty Right total knee arthroplasty Management as per surgical team Pain management Diabetes mellitus type 2 Sliding scale, ADA diet, Lantus Hypertension Stable blood pressure Amlodipine ED Hyperlipidemia Continue statin DVT prophylaxis with full-dose aspirin Medical consultation complete. Will sign off
[2024-01-29 16:14] LABS: Glucose, Whole Blood 225 mg/dL (60-115)
[2024-01-29] MEDS: Insulin Lispro 100 UNIT/ML 3 ML VIAL SUBCUT ×2 (17:03→20:57)
[2024-01-29 20:27] LABS: Glucose, Whole Blood 288 mg/dL (60-115)
[2024-01-29] MEDS: Celecoxib 200 MG CAPSULE PO (20:54)
[2024-01-29] MEDS: oxyCODONE HCl ER 10 MG TAB.ER.12H PO (20:54)
[2024-01-29] MEDS: Insulin Glargine,Hum.rec.anlog 100 UNIT/ML 10 ML VIAL 35 UNIT SUBCUT (20:57)
[2024-01-30] MEDS: Lactated Ringers 1,000 ML 100 ML IVCONT (00:42)
--- NOTE | 2024-01-30 00:43 | PC.NURSE ---
RN in room to hang new bag of LR. Patient denies pain, offered ice pack, patient refused. patient sleeping supine. dressing and zoë wrap CDI. call vance within reach.
[2024-01-30 03:20] VITALS: BP 98/54; PULSE 78; RESP 14; TEMP 36.1; O2SAT 95
[2024-01-30 07:16] VITALS: BP 107/53; PULSE 80; RESP 16; TEMP 36.3; O2SAT 96
[2024-01-30 07:51] LABS: Glucose, Whole Blood 259 mg/dL (60-115)
--- NOTE | 2024-01-30 08:23 | PM.PNORT ---
Subjective Subjective Date of Service: 01/30/24 Interval history: POD1 s/p RTKA Patient is resting in bed comfortably No overnight events Pain is managed No additional complaints Physical Exam Vital Signs: Vital Signs: Last Vital Signs Temp 97.4 F 01/30/24 07:16 Pulse 80 01/30/24 07:16 Resp 16 01/30/24 07:16 BP 107/53 L 01/30/24 07:16 Pulse Ox 96 01/30/24 07:16 O2 Del Method Room Air 01/30/24 07:16 BMI result Body Mass Index 40.3 Const: General: cooperative, healthy appearing and no acute distress Resp: Effort & Inspection: normal respiratory effort and able to speak in complete sentences Cardio: Rate: regular rate Peripheral pulses: Peripheral pulses 2+ throughout GI: Palpation (GI): Soft to palpation Skin: Lesions: no lesions Rashes: no rashes Extrem: Other: right knee dressing is c/d/i. Able to dorsi/plantar flex. Calf is supple and nontender. Sensation intact. Pedal pulse intact. Procedures Date of Service Date of Service: 01/30/24 Progress Note: A&P Assessment and plan (1) Status post total right knee replacement: Status: Acute Plan Continue pain mgmnt Begin ASA for dvt ppx begin PT for RTKA Dispo planning-Pending PT eval, pain mgmnt Time Spent With Patient Time: Total time managing care of this patient today ____ minutes. Quality Stroke Does the patient have a stroke diagnosis?: No VTE Prior VTE?: No VTE Risk Level:: Medical - moderate - high VTE Device Contraindication: N/A - Device Ordered VTE Drug Contraindication: N/A - Med Ordered
--- NOTE | 2024-01-30 08:29 | PM.DS ---
DS: Providers Provider Date of Service: 01/30/24 Date of admission: 01/29/24 06:47 Primary care physician: Issa Laird MD Consults: 01/29/24 15:42 Consult to Medicine Stat Consulting Provider: Hospitalist Reason for consultation: diabetes Has provider been notified: No DS: Diagnosis Discharge Diagnosis (1) Status post total right knee replacement: Status: Acute DS: Summary Hospital Course Hospital Course: The patient underwent a successful right total knee arthroplasty, they were transferred to PACU and then to the floor to recover. During their stay, their vitals were stable, afebrile at 97.4. Labs were unremarkable, H/H10.2/29.1 . POD 1 they were started on Aspirin 325mg po bid for DVT ppx, they also received Physical Therapy services twice a day. Prior to discharge, their dressing was clean dry and intact, and the plan was to be discharged home with VNA services. Time Attestation Discharge Coordination Time (in mins): 30 Quality: Safe Use of Opioids Does Pt have an Active Cancer Diagnosis on the Problem List?: No Quality: Stroke Does the patient have a stroke diagnosis?: No Physical Exam Vital Signs: Vital Signs: Last Vital Signs Temp 97.4 F 01/30/24 07:16 Pulse 80 01/30/24 07:16 Resp 16 01/30/24 07:16 BP 107/53 L 01/30/24 07:16 Pulse Ox 96 01/30/24 07:16 O2 Del Method Room Air 01/30/24 07:16 BMI result Body Mass Index 40.3 Const: General: cooperative, healthy appearing and no acute distress Resp: Effort & Inspection: normal respiratory effort and able to speak in complete sentences Cardio: Rate: regular rate Peripheral pulses: Peripheral pulses 2+ throughout GI: Palpation (GI): Soft to palpation Skin: Lesions: no lesions Rashes: no rashes Extrem: Other: rt knee dressing is c/d/i. Able to dorsi/plantar flex. Calf is supple and nontender. Sensation intact. Pedal pulse intact. DS: Data Data Completed and Pending Pending studies at discharge: Pending at discharge 01/29/24 09:47 Surgical [PTH] Routine Labs on day of discharge: Laboratory Results - last 24 hr 06/19/24 06/19/24 06/19/24 12:21 13:43 16:08 POC Glucose 166 H 178 H 225 H 01/29/24 01/30/24 19:52 07:18 POC Glucose 288 H 259 H Discharge Plan Discharge Anticipated Discharge Date/Time: 01/30/24 08:25 Patient Disposition: Home Health Service Discharge Diagnosis: s/p RTKA Referrals: [facility] [Outside] - 1 Day Catracho Mattson PA-C [Physician Director [employer]] - 02/17/24 2:15 pm Discharge Medications: New celecoxib 200 mg Capsule 200 mg PO BID 30 Days Qty: 60 0RF acetaminophen 325 mg Tablet 650 mg PO Q6H PRN (Reason: Pain, Mild (Pain Scale 1-3), fever or headache) 30 Days Qty: 240 0RF aspirin 325 mg Tablet 325 mg PO BID 42 Days Qty: 84 0RF oxycodone 5 mg Tablet 5 mg PO Q4H PRN (Reason: Pain, Moderate(Pain Scale 4-6)) 7 Days Qty: 42 0RF Rx Instructions: Partial Fill upon patient request. Continued (DME) walker Misc See Rx Instructions .ROUTE .MEDSUPPLY Qty: 1 0RF Rx Instructions: Folding front wheeled walker amlodipine 5 mg tablet 5 mg PO QAM (DME) walker Misc See Rx Instructions .ROUTE .MEDSUPPLY Qty: 1 0RF Rx Instructions: Folding front wheeled walker insulin glargine [Lantus Solostar U-100 Insulin] 100 unit/mL (3 mL) insulin pen 35 unit subcut BEDTIME losartan 100 mg tablet 100 mg PO QAM omeprazole 20 mg capsule,delayed release(DR/EC) 20 mg PO DAILY rosuvastatin 20 mg tablet 20 mg PO DAILY glipizide 5 mg tablet 10 mg PO BID Discontinued acetaminophen 500 mg Tablet 1,000 mg PO QID PRN (Reason: Pain) aspirin 81 mg tablet,delayed release (DR/EC) 81 mg PO DAILY Discharge Orders: Discharge Order (Routine); Ordered 01/30/24 Ordered By: Malika Boyd Diet: Advance to usual diet Activity on Discharge: Use cane or walker Stand Alone Forms: Patient Portal Discharge page Print Language: Tongan Care Plan Goals: restore fxn to rt knee Health Concerns: none Plan of Treatment: .Physical Therapy for ROM 0-120, quad strength, gait training. Use walker for ambulation Limit stair climbing, No shower, No tub bath, No driving Continue anticoagulant x 6 weeks Keep Aquacel dressing clean, dry and intact. Follow up with orthopedics in 2 weeks Assessment: stable for d/c
--- NOTE | 2024-01-30 08:30 | P.F2F_ITS ---
Service Date Service Date: 01/30/24 Encounter Date of encounter: 01/30/24 Reasons for Services Signs and symptoms assessed: s/p RTKA Pt. is considered homebound due to recent surgery. Unable to drive, poor balance, poor gait mechanics. Reason for physical therapy: home safety and mobility, therapeutic exercises, restore joint function, gait/transfer training, assess need for DME and ADL training Homebound: Leaving the home is medically contraindicated at this time without the asist of a device and/or another person due th the listed conditions above and below. Reason homebound: unsteady gait / fall risk, leg weakness, pain with ambulation, poor balance / fall risk and unable to drive Certification: Based on the above findings, I certify that this patient is confined to the home and needs intermittent mcfp care, physical therapy and/or speech th erapy, or continues to need occupational therapy. The patient is under my care, and I have initiated the establishment of the plan of care. The patient will be followed by a physician who will periodically review the plan of care. Time Spent With Patient Time: Total time managing care of this patient today ____ minutes.
[2024-01-30 08:43] VITALS: BP 107/53
[2024-01-30] MEDS: Insulin Lispro 100 UNIT/ML 3 ML VIAL SUBCUT (08:43)
[2024-01-30] MEDS: Atorvastatin Calcium 80 MG TABLET PO (08:43)
[2024-01-30] MEDS: oxyCODONE HCl ER 10 MG TAB.ER.12H PO (08:43)
[2024-01-30] MEDS: Celecoxib 200 MG CAPSULE PO (08:43)
[2024-01-30] MEDS: amLODIPine Besylate 5 MG TABLET PO (08:43)
[2024-01-30] MEDS: Losartan Potassium 50 MG TABLET 100 MG PO (08:43)
[2024-01-30] MEDS: 0.9 % Sodium Chloride Flush 3 ML SYRINGE IVFLUSH (08:45)
[2024-01-30 10:01] LABS: Hematocrit 29.1 % (37.0-47.0); Hemoglobin 10.1 g/dl (12.0-16.0)
--- NOTE | 2024-01-30 11:15 | MHC.CM.PN ---
CM SPOKE TO PTS SON, BRITTANY [phone] HE REPORTS THE PT LIVES AT HOME WITH HIM AND HE IS HER SUPERVIS[employer] HE DOES NOT THINK SHE HAS A SUPERVISOR PICKING [employer]W, BUT WILL ACCEPT INFO/DOCUMENT TO DISCUSS WITH HER PCP: ROHAN BREAUX DCP: PT WILL DC HOME TODAY WITH RESUMPTION OF [employer] SERVICES AND NEW [facility] SON WILL TRANSPORT
[2024-01-30 11:16] LABS: Glucose, Whole Blood 274 mg/dL (60-115)
--- NOTE | 2024-01-30 11:26 | HO.POSTANES ---
Post Anesthesia Evaluation Post Anesthesia Evaluation Date of Service: 01/29/24 Vital Signs: Vital Signs Temp Pulse Resp BP Pulse Ox O2 Del Method 01/30/24 08:43 107/53 L 01/30/24 08:43 107/53 L 01/30/24 07:16 97.4 F 80 16 107/53 L 96 Room Air 01/30/24 03:20 97 F 78 14 98/54 L 95 Room Air Anesthesia: Spinal and Nerve Block Mental Status: Awake Pain Control: Satisfactory Nausea/Vomiting: None Hydration: Adequate Anesthesia-Related Issues: No Anes. Related Issues
--- NOTE | 2024-02-05 09:55 | P.OP_ITS ---
Operative Note Operative Note Date of Service: 01/29/24 Narrative: Date of Service: 01/29/24 Pre-op diagnosis: Right knee OA Post-op diagnosis: same Procedure: Right TKA Implants: [place] [employer] posterior stabilized cemented 10/12/09ps/29a Surgeon: Gibson Rivera MD Anesthesia: regional Was an Superior Court Justice used for this Procedure?: Yes Superior Court Justice: Malika Boyd Estimated blood loss (mL): 20 Tourniquet time (min): 52 IV fluids (mL): 1,000 Pathology: other Condition: stable Disposition: PACU Procedure in detail: The patient was brought to the operating room and prepped and draped in standard sterile fashion. A time-out was called to identify proper site proper procedure proper surgeon and IV antibiotics were administered. 1 g of IV tranexamic acid was administered. I began by making a midline incision to the retinaculum and performed a medial parapatellar arthrotomy. The patella was translated laterally and the knee was flexed up. THe medial compartment was eburrnated. I performed a small medial peel and resected the infrapatellar fat pad. Sarah's line was then used to drill my intramedullary femoral guide and my distal femur cut of 10 mm was made in 5 degrees of valgus while protecting the soft tissues. I then measured a # 3 femur and placed my cutting guide in 3 deg of ER and made my anterior posterior and chamfer cuts protecting the soft tissues at all times. I then made my box but removing the PCL. The posterior soft tissues were protected. Once I was satisfied with my cuts I turned my attention to the tibia. I removed the meniscus medially and laterally and , using an external cutting guide, in line with the tibial crest and the third ra y, I made my distal tibial cut in 0 deg slope of while protecting the posterior soft tissues at all times. An extension block was used to confirm appropriate amount of bony resection. I then sized a #3 tibia and once I was satisfied that there was complete tibial coverage I placed my trial and with the trial femur in place took the knee through range of motion. I was satisfied with the extension and flexion as well as the balance at 0, 30 and 90 degrees. I then turned my attention to the patella where I removed 1 cm from the undersurface of the patella and then trialed a 29a patellar button. Again the knee was taken through range of motion I was satisfied with the tracking. I then prepared the tibia with a drill and punch. A femoral bone plug was placed and the knee was irrigated copiously. I then cemented the patella, tibia and femur in standard fashion. Axial compression and a clamp were used while the cement dried. Once the cement was hard on the back table all excess cement was removed and I trialed different inserts until I selected a #10ps insert. The final insert was placed and the wound was irrigated copiously. Local TXA was administered.. The knee was then closed with a running Quill suture, a 3 0 Vicryl and kyle on the skin. Patient was then placed in sterile dressing and brought to recovery room in stable condition there were no known complications.
== END 2024-01-30 12:33 | disposition home health service (06) | DRG 326 ==
LOC: HO.SSSA 06:55 → HO.S3 12:38
PROVIDERS: Orthopaedic Surgery; Admitting Provider Physician Assistant; PCP Internal Medicine; Visit Provider Physician Assistant
PROC: 0SRC0J9 Replacement of Right Knee Joint with Synthetic Substitute, Cemented, Open Approach (ICD-10-PCS; CPT 27447; principal; 2024-01-29 09:20)
DX: M17.11 Unilateral primary osteoarthritis, right knee (principal); E11.9 Type 2 diabetes mellitus without complications; I10 Essential (primary) hypertension; E78.5 Hyperlipidemia, unspecified; K21.9 Gastro-esophageal reflux disease without esophagitis; G89.18 Other acute postprocedural pain; Z79.4 Long term (current) use of insulin; Z79.899 Other long term (current) drug therapy
CPT/HCPCS: 36415; 73560; 82947; 85014; 85018; 86850; 86900; 86901; 87640; 87641; 88305; 88311; 97116; 97162; 97530; C1713; C1776; J0131; J0665; J0690; J1100; J2250; J2371; J2704; J7120

== ENCOUNTER → 2024-01-29 06:47 | Outpatient (BNV) | payer MEDICAID, SELFPAY | PROVIDERS: Admitting Provider Physician Assistant; PCP Internal Medicine; Visit Provider Orthopaedic Surgery | DX: Z47.1 Aftercare following joint replacement surgery (principal); Z96.651 Presence of right artificial knee joint | CPT/HCPCS: 27447; 99024; G0180 ==

== ENCOUNTER → 2024-01-29 06:47 | Outpatient (BNV) | payer MEDICAID, SELFPAY | PROVIDERS: Admitting Provider Physician Assistant; PCP Internal Medicine; Visit Provider Nurse Practitioner Acute Care | DX: M17.11 Unilateral primary osteoarthritis, right knee (principal) | CPT/HCPCS: 99223 ==

== ENCOUNTER 2024-02-17 14:03 | Outpatient (AMB) | payer MEDICAID, SELFPAY ==
--- NOTE | 2024-02-17 14:04 | A.OFFVIS_ITS ---
Vital Signs 02/17/24 14:06 Height 5 ft 1 in Weight 235 lb BMI 44.4 Intake Visit Reasons: PO right TKA 01/29/24 with NE Intake Note: Marisela is a 64 yr old female who presents today for PO RT TKA. Pt reports some pain but it is not unbearable. Allergies gabapentin Allergy (Mild, Verified 02/17/24 14:07) Hives HPI HPI PO right TKA 01/29/24 with NE: Details: 64-year-old female who returns to the office today for post-op right TKA, 01/29/[address] Rivera. She continues to work with home therapy however she continues to have pain in her knee. Her son is requesting a refill for pain medication today. She has no other concerns. [facility] Medical History Numbness Snores Osteoarthritis Diabetes GERD (gastroesophageal reflux disease) Elevated cholesterol HTN (hypertension) Surgical History Hx of shoulder surgery History of trabeculectomy Social History Household Members: Children Housing: House Are you a primary care coordinator to a significant other at home: No Do you presently have visiting nurse or other home services: Yes ([facility]) Patient Tobacco Use Status: Never used Tobacco Special agnes needs: No Agree to transfusion: Yes ( if needed yes ) service: No Current occupational status: unemployed Review of Systems Const All systems reviewed & are unremarkable except as noted in HPI and below Physical Exam Vital Signs: BMI result Body Mass Index 44.4 Extrem Other: Right knee: Incision clean, dry and intact. No erythema or drainage. ROM is 0-120 degrees. She is able to activate good quad strength. Calf supple, nontender. NVI. Assessment & Plan Assessment & Plan (1) Status post total right knee replacement: Code(s): Z96.651 - Presence of right artificial knee joint Category: Surgical Plan Zahra removed, steri strips applied. She will continue with home therapy and once she is ready to discharge, she will contact the office to transition to outpatient physical therapy to continue working on gait training, ROM and quad strength. No driving for another 4 weeks. She will require ppx abx for dental procedures. She will f/u in 4 weeks, sooner if needed. Orders: Orders PT Evaluation and Treatment Today Z96.651 - Presence of right artificial knee joint Patient Instructions: Scribed for Catracho Mattson PA-C, by Yuri Nieves medical secretary, on 02/17/2024 at 2:15 PM EST.? I, Catracho Mattson PA-C, have personally reviewed and agree with the information entered by the scribe. Coding Level of Care Code Global (97569) Diagnoses Status post total right knee replacement Z96.651
[2024-02-17 14:06] VITALS: BMI 44.4
== END 2024-02-17 14:42 | disposition home or self-care (01) ==
PROVIDERS: PCP Internal Medicine; Visit Provider Physician Assistant
DX: Z96.651 Presence of right artificial knee joint (principal)
CPT/HCPCS: 99024

== ENCOUNTER → 2024-02-17 14:03 | Outpatient (BNVA) | payer MEDICAID, SELFPAY | PROVIDERS: PCP Internal Medicine; Visit Provider Physician Assistant | DX: Z47.1 Aftercare following joint replacement surgery (principal); Z96.651 Presence of right artificial knee joint | CPT/HCPCS: 99212 ==

== ENCOUNTER 2024-03-05 12:19 | Outpatient (AMB) | payer MEDICAID, SELFPAY ==
[2024-03-05 12:37] VITALS: BMI 44.4
--- NOTE | 2024-03-05 12:37 | MHC.OFFVIS ---
Vital Signs 03/05/24 12:37 03/05/24 12:41 Height 5 ft 1 in 5 ft 1 in Weight 235 lb 235 lb BMI 44.4 44.4 Intake Visit Reasons: 6 wk PO right TKA 01/29/24 with NE Intake Note: Marisela is a 64 year old female who presents today post operatively S/P Right TKA 01/29/24. Patient reports constant mild pain with sitting, standing, and ambulation. She has completed PT and found it helpful. She had a bloody nose a few days ago so she slowed down on taking it.No concerns otherwise. Allergies gabapentin Allergy (Mild, Verified 03/05/24 12:43) Hives HPI HPI 6 wk PO right TKA 01/29/24 with NE: Details: Marisela is a 64 year old female who presents today post operatively S/P Right TKA 01/29/24. She will continue with home therapy and once she is ready to discharge, she will contact the office to transition to outpatient physical therapy to continue working on gait training, ROM and quad strength. No driving for another 4 weeks [facility] Medical History Osteoarthritis of right knee Numbness Snores Osteoarthritis Diabetes GERD (gastroesophageal reflux disease) Elevated cholesterol HTN (hypertension) Surgical History Hx of shoulder surgery History of trabeculectomy Social History Household Members: Children Housing: House Are you a primary nonfarm animal caretaker to a significant other at home: No Do you presently have visiting nurse or other home services: Yes ([facility]NA) Patient Tobacco Use Status: Never used Tobacco Special agnes needs: No Agree to transfusion: Yes ( if needed yes ) service: No Current occupational status: unemployed Physical Exam Vital Signs: BMI result Body Mass Index 44.4 Extrem Other: 5-100 inc c/d/i no gait antalgia Assessment & Plan Assessment & Plan (1) Status post total right knee replacement: Code(s): Z96.651 - Presence of right artificial knee joint Category: Surgical Plan: Doing well. Cannot do outpatient PT but progressing at home. May d/c asa. Follow up 6 weeks Coding Level of Care Code Global (39672) Diagnoses Status post total right knee replacement Z96.652
[2024-03-05 12:41] VITALS: BMI 44.4
== END 2024-03-05 13:03 | disposition home or self-care (01) ==
PROVIDERS: PCP Internal Medicine; Visit Provider Orthopaedic Surgery
DX: Z96.651 Presence of right artificial knee joint (principal)
CPT/HCPCS: 99024

== ENCOUNTER → 2024-03-05 12:19 | Outpatient (BNVA) | payer MEDICAID, SELFPAY | PROVIDERS: PCP Internal Medicine; Visit Provider Orthopaedic Surgery | DX: M17.11 Unilateral primary osteoarthritis, right knee (principal); Z96.651 Presence of right artificial knee joint | CPT/HCPCS: 99212 ==

== ENCOUNTER 2024-12-22 11:52 | Outpatient (REF) | payer SELFPAY ==
--- OUTSIDE RECORDS SUMMARY | 2024-12-22 13:17 | XMS_ITS | Encounter Summary ---
Author Organization [employer] Address [address] [place] [address] [address] [address] Care Team Providers Care Shoddy Mill Worker Name Role Phone Issa Laird MD Primary Care Provider [phone] Reason for Referral * Consultation (Routine) - Pending Review Specialty Diagnoses / Procedures Referred By Ivania campa Referred To Contact Orthopaedic Surgery Diagnoses Chronic right shoulder pain Issa Laird MD [address] [place] [address] Phone: tel: fax: Referral ID Status Reason Start Date Expiration Date Visits Requested Visits Authorized [id number] Pending Review Specialty Services Required 12/22/2024 12/22/2025 1 1 Reason for Visit * Reason Comments extended office visit Encounter Details Date Type Department Care Team ([facility] st Contact Info) Description 12/22/2024 10:15 AM EDT Office Visit [facility]EDS [address] [place] [address] Issa Laird MD [address] [place] [address] Type 2 diabetes mellitus with hyperglycemia, with long-term current use of insulin ([facility]) (Primary Dx); Chronic right shoulder pain; Acute pain of both knees; Toe web intertrigo Social History Tobacco Use Types Packs/Day Years Used Date Smoking Tobacco: Never Passive Smoke Exposure: Never Smokeless Tobacco: Never Alcohol Use Standard Drinks/Week Comments Never 0 (1 standard drink = 0.6 oz pur e alcohol) Depression Answer Date Recorded Patient Health Questionnaire-9 Score 0 08/14/2022 Housing Stability Answer Date Recorded What is your housing situation today? I have anaya goldsmith 05/28/[address] you li ve. Do you have problems with any of the following? None of the above 05/28/2023 Food Insecurity Answer Date Recorded Within the past 12 months, y ou worried that your food would run out before you got money to buy more: Never True 05/28/2023 Within the past 12 months,th e food you bought just didn't last and you didn't have enough money to get more: Never True Transportation Answer Date Recorded In the past 12 months, has l ack of transportation kept you from medical appts, meetings, work or from getting things needed for daily living? No 05/28/2023 Utilities Answer Date Recorded In the past 12 months, has t he electric, gas, oil or water company threatened to shut off services in your home? No 05/28/2023 Depression Answer Date Recorded Patient Health Questionnaire-2 Score 0 08/14/2022 Internet Access Answer Date Recorded Internet Access Q1 Yes 04/13/2024 Internet Access Q2 Not on file 04/13/2024 Comments Unknown Sex and Gender Information Value Date Recorded Sex Assigned at Female 06/11/2022 10:21 AM EDT Legal Sex Female 10:21 AM EDT Gender Identity Female 06/11/2022 10:21 AM EDT Sexual Orientation Straight 06/11/2022 10 :21 AM EDT documented as of this encounter Last Filed Vital Signs Vital Sign Reading Time Taken Comments Blood Pressure 147/84 12/22/2024 10:30 AM EDT Pulse 80 12/22/2024 10:30 AM EDT Temperature - - Respiratory Rate - - Oxygen Saturation - - Inhaled Oxygen Concentration - - Weight 103 kg (227 lb) 12/22/2024 10:30 AM EDT Height 160 cm (5' 3 ) 12/22/2024 10:30 AM EDT Body Mass Index 40.21 12/22/2024 10:30 AM EDT documented in this encounter Progress Notes * Issa Laird MD - 12/22/2024 10:15 AM EDT Nano Antonio Gasanova is a 64 y.o. female who presents for extended office visit. HPI 1) history of hypertension. Patient states that she is compliant to her medication. Came to the office with her son who reports that the blood pressure has been difficult to control. He called the patient's perinatal technician to get an appointment because last time the blood pressure was difficult to control like this it was related to her eye pressure. He has an appointment scheduled for the end ofthe week. 2) history of diabetes. Poorly controlled. Poor compliance to medication and diet. 3) history of osteoarthritis. Patient is complaining of a constant right shoulder pain that startedabout 4 months ago. Exacerbated by movement in general. No reported history of fall. Patient Active Problem List Diagnosis Depressive disorder Hypercholesterolemia Hypertension Pain in limb Primary open angle glaucoma Type 2 diabetes mellitus with hyperglycemia, with long-term current use of insulin ([facility]) Left knee pain Allergies Allergen Reactions Gabapentin Other reaction(s): hives Current Outpatient Medications on File Prior to Visit Medication Sig Dispense Refill acetaminophen (Tylenol 8 Hour) 650 MG ER tablet Take 1 tablet (650 mg) by mouth every 8 (eight) hours if needed for mild pain. 60 tablet 3 Alcohol Swabs (Alcohol Prep) 70 % pads USE DAILY DIRECTED 100 each 11 amLODIPine (Norvasc) 5 MG tablet Take 1 tablet by mouth in the morning. 90 tablet 3 Aspirin Adult Low Strength 81 MG EC tablet TAKE ONE TABLET BY MOUTH EVERY DAY 90 tablet 1 azithromycin (Zithromax) 250 MG tablet 500 mg on day 1, 250 mg day 2 through 5 6 tablet 0 Blood Glucose Monitoring Suppl (FreeStyle [place] Lite) w/Device kit TEST BLOOD SUGAR TWICE DAILY 1kit 0 glipiZIDE (Glucotrol) 5 MG tablet TAKE TWO TABLETS BY MOUTH TWICE DAILY BEFORE MEALS 360 tablet 1 glucose blood (FREESTYLE LITE) test strip TEST BLOOD SUGAR TWICE DAILY 50 strip 11 insulin glargine (Lantus SoloStar) 100 UNIT/ML pen INJECT 35 UNITS SUBCUTANEOUSLY AT BEDTIME 15 mL 11 Lantus SoloStar 100 UNIT/ML pen INJECT 35 UNITS SUBCUTANEOUSLY AT BEDTIME 15 mL 11 losartan (Cozaar) 100 MG tablet Take 1 tablet by mouth in the morning. 30 tablet 11 omeprazole (PriLOSEC) [address] capsule TAKE ONE CAPSULE BY MOUTH DAILY 90 capsule 1 rosuvastatin (Crestor) 40 MG tablet Take 1 tablet (40 mg) by mouth in the morning. 30 tablet 11 Sure Comfort Pen [place] 31G X 8 MM misc USE TWICE DAILY 100 each 11 triamcinolone (Kenalog) 0.1 % cream APPLY TOPICALLY TO THE AFFECTED AREA(S) TWICE DAILY IN THE MORNING AND AT BEDTIME NEEDED 30 g 2 TRUEplus Lancets 28G misc TEST BLOOD SUGAR EVERY DAY [DISCONTINUED] naproxen (Naprosyn) 500 MG tablet TAKE ONE TABLET TWICE DAILY WITH FOOD 60 tablet 5 No current facility-administered medications on file prior to visit. Review of Systems Constitutional: Negative for appetite change, chills and diaphoresis. Eyes: Negative for photophobia, pain and redness. Respiratory: Negative for cough, choking and shortness of breath. Cardiovascular: Negative for leg swelling. Gastrointestinal: Negative for blood in stool. Musculoskeletal: Positive for arthralgias. Right shoulder pain Skin: Negative for pallor and rash. OBJECTIVE Vitals: 12/22/24 1030 BP: (!) 147/84 BP Location: Left arm Patient Position: Sitting BP Cuff Size: Adult long Pulse: 80 Weight: 227 lb (103 kg) Height: 5' 3 (1.6 m) Physical Exam Constitutional: Appearance: Normal appearance. Cardiovascular: Rate and Rhythm: Normal rate. Heart sounds: No murmur heard. No friction rub. Pulmonary: Effort: Pulmonary effort is normal. Abdominal: Palpations: Abdomen is soft. Musculoskeletal: Right shoulder: Tenderness present. No swelling or deformity. Decreased range of motion. Cervical back: Normal range of motion. Skin: General: Skin is warm. Comments: Third toe web intertrigo. Neurological: General: No focal deficit present. Mental Status: She is alert. Psychiatric: Mood and Affect: Mood normal. Assessment/Plan Assessment/Plan Diagnoses and all orders for this visit: Type 2 diabetes mellitus with hyperglycemia, with long-term current use of insulin ([facility]) Comments: Poorly controlled Patient is not interested in making any changes to her regimen for now. Advised to have pending labs done. Keep the scheduled appointment with ophthalmology. Orders: - Albumin, Random Urine W/Creatinine; Future Chronic right shoulder pain - XR Shoulder 2+ Views Right; Future - Referral to Orthopaedic Surgery; Future - naproxen (Naprosyn) 500 MG tablet; TAKE ONE TABLET TWICE DAILY WITH FOOD Acute pain of both knees - naproxen (Naprosyn) 500 MG tablet; TAKE ONE TABLET TWICE DAILY WITH FOOD Toe web intertrigo - econazole nitrate 1 % cream; Apply topically Once per day. documented in this encounter Plan of Treatment Upcoming Encounters Date Type Department Care Team (Late st Contact Info) Description 03/25/2025 1:00 PM EDT Office Visit [facility] MED & PEDS [address] [place] [address] Issa Laird MD [address] [place] [address] Scheduled Orders Name Type Priority Associated Diagnoses Orde r Schedule Albumin, Random Urine W/Creatinine Lab Routine Type 2 diabetes mellitus with hyperglycemia, with long-term current use of insulin ([facility]) Expected: 12/22/2024 (Approximate), Expires: 12/22/2025 XR Shoulder 2+ Views Right Imaging Routine Chronic right shoulder pain Expected: 12/22/2024, Expires: 12/22/2025 Scheduled Referrals Name Type Priority Associated Diagnoses Order Schedule Referral to Orthopaedic Surgery Outpatient Referral Routine Chronic right shoulder pain Expected: 12/22/2024 (Approximate), Expires: 12/22/2025 documented as of this encounter Visit Diagnoses Diagnosis Type 2 diabetes mellitus with hyperglycemia, with long-term current use of insulin ([facility])- Primary Chronic right shoulder pain Pain in joint, shoulder region Acute pain of both knees Toe web intertrigo documented in this encounter Additional Health Concerns Assessment Noted Time PHQ-9 Depression Total Score: 0 08/14/19 23 2:52 PM EST documented as of this encounter Care Teams Shoddy Mill Worker Relationship Specialty Start Date End Date Issa Laird MD [address] [place] [address] PCP - General Internal Medicine 08/12/18 documented as of this encounter
--- OUTSIDE RECORDS SUMMARY | 2024-12-22 13:17 | XMS_ITS | Encounter Summary ---
Author Organization [employer] Address [address] [facility] 7 [place] [address] Care Team Providers Care Carton Forming Machine Operator Name Role Phone Issa Laird MD Primary Care Provider [phone] Reason for Visit * Reason Onset Date Comments Pre OP 11/20/2023 Encounter Details Date Type Department Care Team ([facility] st Contact Info) Description 11/20/2023 Telephone [facility] MED & PEDS [address] [place], [place] [phone] Issa Laird MD [address] [place] [address] Pre OP Social History Tobacco Use Types Packs/Day Years [...] Recorded Patient Health Questionnaire-2 Score 0 08/14/2022 Comments Unknown Sex and Gender Information Value Date Recorded Sex Assigned at Female 06/11/2022 10:21 AM EDT Legal Sex Female 10:21 AM EDT Gender Identity Female 06/11/2022 10:21 AM EDT Sexual Orientation Straight 06/11/2022 10 :21 AM EDT documented as of this encounter Miscellaneous Notes * Telephone Encounter - Wing Tere RN - 11/20/2023 12:47 PM EDT Tc to [facility] Orthopedics and spoke to Irais, scheduled pre-op with PCP for December 30 at 2:15 pm. Pt also needs an A1c and CBC with diffGordon Braxton verbalized understanding and agreement with plan, also with fax over last surgeons note and lab requests. * Telephone Encounter - Doreen Pastor - 11/20/2023 12:23 PM EDT Date of Surgery: 01/29/24 Surgical procedure being done: Right total knee replacement Type of anesthesia: Spinal with block Lab needed: yes EKG: yes Surgeon's name: Dr. Gibson Rivera Facility name: [facility] orthopedic surgeons Surgeon's office number: [phone] Surgeon's office fax number: [phone] Contact name (person you spoke with): Irais documented in this encounter Plan of Treatment Upcoming Encounters Date Type Department Care Team ([facility] st Contact Info) Description 03/25/2025 1:00 PM EDT Office Visit [facility] MED & PEDS [address] [place] [address] Issa Laird MD [address] [place] [address] documented as of this encounter Visit Diagnoses Not on filedocumented in this encounter Additional Health Concerns Assessment Noted Time PHQ-9 Depression Total Score: 0 08/14/19 23 2:52 PM EST documented as of this encounter Care Teams Carton Forming Machine Operator Relationship Specialty Start Date End Date Issa Laird MD [address] [place] [id number] PCP - General Internal Medicine 08/12/18 documented as of this encounter
--- OUTSIDE RECORDS SUMMARY | 2024-12-22 13:17 | XMS_ITS | Encounter Summary ---
Author Organization [employer] Address [address] [facility] [address] [place] [address] Care Team Providers Care Lubrication Servicer Name Role Phone Issa Laird MD Primary Care Provider [phone] Reason for Visit * Reason Onset Date Comments Record Request 10/18/2023 Encounter Details Date Type Department Care Team ([facility] st Contact Info) Description 10/18/2023 Telephone [facility] MED & PEDS [address] [place], [place] [phone] Issa Laird MD [address] [place] [address] Record Request Social History Tobacco Use Types Packs/Day Years [...] encounter Miscellaneous Notes * Telephone Encounter - Zoila Neal - 10/18/2023 3:19 PM EST Franklyn haddad with [facility] ortho requesting 3 Pre-Op notes and EKG to be faxed to [phone] documented in this encounter Plan of Treatment Upcoming Encounters Date Type Department Care Team (Late st Contact Info) Description 03/25/2025 1:00 PM EDT Office Visit [facility] MED & PEDS [address] [place] [address] Issa Laird MD [address] [place] [address] documented as of this encounter Visit Diagnoses Not on filedocumented in this encounter Additional Health Concerns Assessment Noted Time PHQ-9 Depression Total Score: 0 08/14/19 23 2:52 PM EST documented as of this encounter Care Teams Lubrication Servicer Relationship Specialty Start Date End Date Issa Laird MD [address] [place] [address] PCP - General Internal Medicine 08/12/18 documented as of this encounter
--- OUTSIDE RECORDS SUMMARY | 2024-12-22 13:17 | XMS_ITS | Encounter Summary ---
Author Organization [employer] Address [address] [facility] 7[address] [place] [address] Care Team Providers Care Diesel Powerplant Mechanic Name Role Phone Issa Laird MD Primary Care Provider [phone] Encounter Details Date Type Department Care Team (Latest Contact Info) Description 10/17/2023 Orders Only [facility] MED & PEDS [address] [place], [place] [phone] Issa Laird MD [address] [place] [address] Hypercholesterolemia (Primary Dx); Microcytic anemia Social History Tobacco Use Types Packs/Day Years [...] AM EDT documented as of this encounter Plan of Treatment Upcoming Encounters Date Type Department Care Team (Late st Contact Info) Description 03/25/2025 1:00 PM EDT Office Visit [facility] MED & PEDS [address] [place] [address] Issa Laird MD [address] [place] [address] Scheduled Orders Name Type Priority Associated Diagnoses Orde r Schedule Vitamin B12 Lab Routine Microcytic anemia Expected: 10/17/2023 (Approximate), Expires: 10/16/2024 Iron, TIBC And Ferritin Panel Lab Routine Microcytic anemia Expected: 10/17/2023 (Approximate), Expires: 10/16/2024 Folate, RBC Lab Routine Microcytic anemia Expected: 10/17/2023 (Approximate), Expires: 10/16/2024 Reticulocyte Count Lab Routine Microcytic anemia Expected: 10/17/2023, Expires: 10/16/2024 documented as of this encounter Visit Diagnoses Diagnosis Hypercholesterolemia- Primary Pure hypercholesterolemia Microcytic anemia Unspecified iron deficiency anemia documented in this encounter Additional Health Concerns Assessment Noted Time PHQ-9 Depression Total Score: 0 08/14/19 23 2:52 PM EST documented as of this encounter Care Teams Diesel Powerplant Mechanic Relationship Specialty Start Date End Date Issa Laird MD [address] [place] [address] PCP - General Internal Medicine 08/12/18 documented as of this encounter
--- OUTSIDE RECORDS SUMMARY | 2024-12-22 13:17 | XMS_ITS | Clinical Summary ---
Author Organization [employer] Address [address] [facility] 7t [place] [address] Care Team Providers Care Grades 7 And 8 Teacher Name Role Phone Issa Laird MD Primary Care Provider [phone] Allergies Active Allergy Reactions Criticality Noted Date Comments Gabapentin 04/04/2012 Other reaction(s): hives Medications * This document contains information received from the source organization and may not represent a complete record from that organization. acetaminophen (Tylenol 8 Hour) 650 MG ER tabletIndicatio ns:Chronic pain of left knee Take 1 tablet (650 mg) by mouth every 8 (eight) hours if needed for mild pain. 60 tablet 3 023 Active TRUEplus Lancets 28G misc TEST BLOOD SUGAR EVERY DAY 022 Active rosuvastatin (Crestor) 40 MG tabletIndicatio ns:Hypercholest erolemia Take 1 tablet (40 mg) by mouth in the morning. 30 tablet 11 024 Active Lantus SoloStar 100 UNIT/ML penIndications: Type 2 diabetes mellitus with hyperglycemia, with long-term current use of insulin ([facility]) INJECT 35 UNITS SUBCUTANEOUSLY AT BEDTIME 15 mL 11 024 Active Aspirin Adult Low Strength 81 MG EC tabletIndicatio ns:Primary hypertension TAKE ONE TABLET BY MOUTH EVERY DAY 90 tablet 1 024 Active amLODIPine (Norvasc) 5 MG tabletIndicatio ns:Hypertension , unspecified type Take 1 tablet by mouth in the morning. 90 tablet 3 024 Active losartan (Cozaar) 100 MG tabletIndicatio ns:Hypertension , unspecified type Take 1 tablet by mouth in the morning. 30 tablet 11 024 Active Blood Glucose Monitoring Suppl (FreeStyle [place] Lite) w/Device kit TEST BLOOD SUGAR TWICE DAILY 1 kit Active Alcohol Swabs (Alcohol Prep) 70 % pads USE DAILY DIRECTED 100 each 025 Active Sure Comfort Pen [place] 31G X 8 MM miscIndications :Type 2 diabetes mellitus with hyperglycemia, with long-term current use of insulin (CMS/[facility]) USE TWICE DAILY 100 each Active azithromycin (Zithromax) 250 MG tabletIndicatio ns:Bronchitis 500 mg on day 1, 250 mg day 2 through 5 6 tablet Active insulin glargine (Lantus SoloStar) 100 UNIT/ML penIndications: Type 2 diabetes mellitus with hyperglycemia, with long-term current use of insulin (CMS/HCC) INJECT 35 UNITS SUBCUTANEOUSLY AT BEDTIME 15 mL Active glucose blood (FREESTYLE LITE) test stripIndication s:Type 2 diabetes mellitus with hyperglycemia, with long-term current use of insulin (CMS/[facility]) TEST BLOOD SUGAR TWICE DAILY 50 strip Active triamcinolone (Kenalog) 0.1 % cream APPLY TOPICALLY TO THE AFFECTED AREA(S) TWICE DAILY IN THE MORNING AND AT BEDTIME NEEDED 30 g Active glipiZIDE (Glucotrol) 5 MG tablet TAKE TWO TABLETS BY MOUTH TWICE DAILY BEFORE MEALS 360 tablet Active omeprazole (PriLOSEC) [address] capsule TAKE ONE CAPSULE BY MOUTH DAILY 90 capsule 025 Active naproxen (Naprosyn) 500 MG tabletIndicatio ns:Chronic right shoulder pain,Acute pain of both knees TAKE ONE TABLET TWICE DAILY WITH FOOD 60 tablet 5 Active econazole nitrate 1 % creamIndication s:Toe web intertrigo Apply topically Once per day. 30 g 025 2025 Active insulin glargine (Lantus SoloStar) 100 UNIT/ML penIndications: Type 2 diabetes mellitus with hyperglycemia, with long-term current use of insulin (CMS/[facility]) INJECT 35 UNITS SUBCUTANEOUSLY AT BEDTIME 30 mL 024 2024 Discontinued(R eorder (will not trigger notification to Pharmacy)) glucose blood (FREESTYLE LITE) test strip TEST BLOOD SUGAR TWICE DAILY 50 strip 11 024 2024 Discontinued(R eorder (will not trigger notification to Pharmacy)) glipiZIDE (Glucotrol) 5 MG tablet TAKE TWO TABLETS BY MOUTH TWICE DAILY BEFORE MEALS 360 tablet 1 2024 Discontinued omeprazole (PriLOSEC) [address] capsule TAKE ONE CAPSULE BY MOUTH DAILY 90 capsule 1 024 2024 Discontinued naproxen (Naprosyn) 500 MG tabletIndicatio ns:Acute pain of both knees TAKE ONE TABLET TWICE DAILY WITH FOOD 60 tablet 5 2024 Discontinued(R eorder (will not trigger notification to Pharmacy)) triamcinolone (Kenalog) 0.1 % cream Apply topically if needed in the morning and at bedtime (pain and swelling). 30 g 2 024 2024 Discontinued(R eorder (will not trigger notification to Pharmacy)) Active Problems Problem Noted Date Diagnosed Date Left knee pain 10/08/2022 Assessment & Plan (10/08/2022 5:41 PM EST): Patient with left knee pain and morbid obesity. Reviewed X ray results. At this point unable to proceed with trial of steroid injection given significantly elevated blood pressure. Type 2 diabetes mellitus wit h hyperglycemia, with long-term current use of insulin 08/14/2022 Hypercholesterolemia 02/20/2016 Hypertension 02/26/2014 Assessment & Plan (10/08/2022 5:39 PM EST): Patient currently on losartan 100 mg tablet which is the max dose, will add CCB (amlodipine 5 mg) and scheduled f/up with PCP. Depressive disorder 11/15/2011 Pain in limb 11/15/2011 Primary open angle glaucoma 11/15/2011 Resolved Problems Problem Noted Date Diagnosed Date Resolved Date Diabetes mellitus 11/15/2011 10/08/2022 Encounters Date Type Department Care Team Description 12/22/2024 10:15 AM EDT Office Visit [facility] MED & PEDS [address] [place] [address] Issa Laird MD Type 2 diabetes mellitus with hyperglycemia, with long-term current use of insulin (CMS/[facility]) (Primary Dx); Chronic right shoulder pain; Acute pain of both knees; Toe web intertrigo 12/22/2024 Travel 12/05/2024 Refill [facility] MED & PEDS [address] [place] [address] Issa Laird MD 11/26/2024 Refill [facility]EDS [address] [place] [address] Issa Laird MD Type 2 diabetes mellitus with hyperglycemia, with long-term current use of insulin (CMS/HCC) 10/23/2024 Population Health Risk Score [facility] () Department [address] [place] [phone] Provider, Population Health Generic 10/16/2024 2:45 PM EST Office Visit [facility] MED [facility] PEDS [address] [place] [address] Issa Laird MD Primary hypertension (Primary Dx); Type 2 diabetes mellitus with hyperglycemia, with long-term current use of insulin (CMS/HCC); Bronchitis; Hypercholesterolemi a; Dietary counseling; Exercise counseling; Class 3 severe obesity due to excess calories with serious comorbidity and body mass index (BMI) of 40.0 to 44.9 in adult (CMS/HCC) 10/16/2024 Refill [facility] [address] [place] [address] Issa Laird MD Type 2 diabetes mellitus with hyperglycemia, with long-term current use of insulin (CMS/HCC) 10/16/2024 Travel from Last 3 Months Immunizations Name Administration Dates Next Due Influenza injectable quadriv alent IIV4 with preservative 06/10/2015 Influenza, IIV3, injectable 07/05/2014 Tdap 06/20/2023 Social History Tobacco Use Types Packs/Day Years [...] Orientation Straight 06/11/2022 10 :21 AM EDT Last Filed Vital Signs Vital Sign Reading Time Taken Comments Blood Pressure 147/84 12/22/2024 10:30 AM EDT Pulse 80 12/22/2024 10:30 AM EDT Temperature 36.7 ??C (98.1 ??F) 10/16/2024 2:57 PM ES T Respiratory Rate 20 10/16/2024 2:57 PM EST Oxygen Saturation 98% 10/16/2024 2:57 PM EST Inhaled Oxygen Concentration - - Weight 103 kg (227 lb) 12/22/2024 10:30 AM EDT Height 160 cm (5' 3 ) 12/22/2024 10:30 AM EDT Body Mass Index 40.21 12/22/2024 10:30 AM EDT Plan of Treatment Upcoming Encounters Date Type Department Care Team (Late st Contact Info) Description 03/25/2025 1:00 PM EDT Office Visit [facility] CHC MED & PEDS [address] [place] [address] Issa Laird MD [address] [place] [address] Health Maintenance Due Date Last Done Comments CT Colonography 1960 Colonoscopy 1960 FIT DNA/Cologuard 1960 FIT 1960 FOBT 1960 HIV Screening 1960 Sigmoidoscopy 1960 Eye Exam 01/08/1970 Alcohol/Substance Use Screening 1972 Hepatitis C Screening 01/08/1978 Diabetes: Urine Protein Screening 01/08/1979 Pap Smear 01/08/1981 RSV Patients and Patients Aged 60 years or older (1 - Risk 60-74 years 1-dose series) 2020 HPV/Cotest 05/27/2023 05/27/2018 Depression Screening 08/14/2023 08/14/2022, 08/14/19 23 Dental Oral Exam 09/27/2023 03/26/2023, 10/27/2015 Dental Prophylaxis 10/12/2023 04/12/2023 Dental X-Ray: Bitewings 03/27/2024 03/26/2023, 10/26 COVID-19 Vaccine ( season) 2024 Lipid Panel 10/15/2024 10/16/2023 Mammogram 12/22/2024 Postponed from 2000 (Patient Refused) Diabetes: Hemoglobin A1C 01/16/2025 03 025, 12/31/2023, 10/15/2023, Additional history exists SDOH Screening 01/30/2025 01/31/2024 Influenza Vaccine (#1) 2025 06/10/2015, 2013 Postponed from 04/12/2024 (Patient Refused) Cervical Cancer Screening 10/16/2025 Po stponed from 01/08/1981 (Patient Refused) Colorectal Cancer Screening 12/22/2025 Postponed from 1960 (Patient Refused) Diabetes: Foot Exam 12/22/2025 12/22/2024, 03/26/2023, 03/26/2023, Additional history exists Pneumococcal Vaccine: 50+ Years (1 of 2 - PCV) 12/22/2025 Postponed from 01/08/1979 (Patient Refused) Tobacco Screening 12/22/2025 12/22/2024 Zoster Vaccines (1 of 2) 12/22/2025 Pos tponed from 01/08/2010 (Patient Refused) Dental X-Ray: Full Mouth 03/27/2026 03/26/2023, 10/10 DTaP/Tdap/Td Vaccines (2 - Td or Tdap) 06/20/2033 06/20/2023 HIB Vaccines Aged Out No longer eligi ble based on patient's age to complete this topic HPV Vaccines Aged Out No longer eligi ble based on patient's age to complete this topic Hepatitis A Vaccines Aged Out No long er eligible based on patient's age to complete this topic Hepatitis B Vaccines Aged Out No long er eligible based on patient's age to complete this topic IPV Vaccines Aged Out No longer eligi ble based on patient's age to complete this topic Meningococcal Vaccine Aged Out No karely colette eligible based on patient's age to complete this topic RSV under 20 months Aged Out No longe r eligible based on patient's age to complete this topic Rotavirus Vaccines Aged Out No longer eligible based on patient's age to complete this topic Procedures Procedure Name Priority Date/Time Associated Diagnosis Comments POCT GLYCATED HEMOGLOBIN, TOTAL Routine 10/16/2024 2:59 PM EST Type 2 diabetes mellitus with hyperglycemia, with long-term current use of insulin ([facility]) POCT GLUCOSE Routine 10/16/2024 2:58 PM EST Type 2 diabetes mellitus with hyperglycemia, with long-term current use of insulin (CMS/[facility]) LIPID PANEL, STANDARD Routine 10/16/2023 3:08 PM EST Type 2 diabetes mellitus with hyperglycemia, with long-term current use of insulin (CMS/[facility]) Pre-op evaluation Full PROPHYLAXIS - ADULT Routine 04/12/2023 8:00 AM EDT INTRAORAL - COMPLETE SERIES OF RADIOGRAPHIC IMAGES Routine 03/26/2023 10:30 AM EDT COMPREHENSIVE ORAL EVALUATION - NEW OR ESTABLISHED PATIENT Routine 03/26/2023 10:30 AM EDT ZZZ HISTORICAL HPV MRNA E6/E7 Routine 05/27/2018 2:59 PM EDT from Last 3 Months or Most Recently Relevant to Health Maintenance Results * (ABNORMAL) POCT A1C (10/16/2024 2:59 PM EST) Pathologist [facility] Hemoglobin A1C 8.6(A) 4.0 - 6.0 % QC Media Lot # Comment:[id number] Lot# Expiration Date Comment:06/15/2026 Blood 10/16/2024 2:59 PM EST Issa Laird MD POINT OF CARE TEST ENTER/ED IT ORDERABLES Final Result * (ABNORMAL) POCT glucose manually resulted (10/16/2024 2:58 PM EST) Pathologist [facility] Glucose Blood, POC 213(A) 60 - 200 mg/dL QC Media Lot # Comment:[id number] Lot# Expiration Date Comment:02/11/2025 Blood Capillary blood specimen / Unknown 10/16/2024 2:58 PM EST Issa Laird MD POINT OF CARE TEST ENTER/ED IT ORDERABLES Final Result * (ABNORMAL) Lipid Panel, Standard (10/16/2023 3:08 PM EST) Triglycerides 297(H) <150 mg/dL [facility] Comment:Desirable Triglyceri de: less than 150 mg/dLBorderline High Triglyceride 150-199 mg/dLHigh Triglyceride: 200-499 mg/dLVery High Triglyceride: greater than or equal to 5OO mg/dL Cholesterol 219(H) <200 mg/dL [facility] Comment:Desirable Cholestero l: less than 200 mg/dLBorderline High Cholesterol: 200-239 mg/dLHigh Cholesterol: greater than 239 mg/dL LDL Cholesterol Calculated 120(H) <100 mg/dL [facility] Comment:Desirable LDL: less than 100 mg/dLNear Optimal/Above Optimal LDL: 110- 129 mg/dLBorderline High LDL: 130-159 mg/dLHigh LDL: 160-189 mg/dLVery High LDL: greater than or equal to 190 mg/dL HDL Cholesterol 40(L) >40 mg/dL [facility] Comment:Desirable HDL: great er than 40 mg/dL Note: This HDL assay may give artificially low results in patients with liver disease. Blood Venous blood specimen / Unknown 10/16/2023 3:08 PM EST 10/16/2023 5:48 PM EST us Issa Laird MD LAB BLOOD ORDERABLES Final Result [facility] [address] [place] [phone] * HPV mRNA E6/E7 (05/27/2018 2:59 PM EDT) HPV mRNA E6/E7 Not Detected NOT DETECTED [facility] Comment: This test was performed using the APTIMA(R) HPV Assay ([employer] This assay detects E6/E7 viral messenger RNA (mRNA) from 14 high-risk HPV types (16,18,31,33,35,39,45,51, 52,56,58,59,66,68). For additional information please refer to: http://education.[employer]/faq/VMS450i0 (This link is being provided for informational/ educational purposes only.) The analytical performance characteristics of this assay have been determined by [employer] [place], [place]. The modifications have not been cleared or approved by the FDA. This assay has been validated pursuant to the CLIA regulations and is used for clinical purposes. Test Performed by [email or web address], [email or web address] [place], [address] [place] [address] Melvin Antonio M.D., Ph.D., Director of Laboratories , CLIA [id number] Please note: ??Effective 04/23/2016, HPV testing will be performed using [employer]'s APTIMA test which targets mRNA. Detecting mRNA instead of DNA, as in older methods, offers significant improvements in specificity. 05/27/2018 2:59 PM EDT us Evon Mendez CNM HISTORICAL/NON ORDERABLE LABS Final Result [facility] [address] from Last 3 Months or Most Recently Relevant to Health Maintenance Insurance [place] [address] [place] [phone] [facility] MEDICAID STAND ADULT Care Teams Grades 7 And 8 Teacher Relationship Specialty Start Date End Date Issa Laird MD [address] [place] [phone] PCP - General Internal Medicine 08/12/18
--- OUTSIDE RECORDS SUMMARY | 2024-12-22 13:17 | XMS_ITS | Encounter Summary ---
Author Organization [employer] Address [address] [facility] 7t [place] [address] Care Team Providers Care Import Specialist Name Role Phone Issa Laird MD Primary Care Provider [phone] Encounter Details Date Type Department Care Team ([facility] st Contact Info) Description 10/18/2023 Telephone [facility] MED & PEDS [address] [place], [place] [phone] Issa Laird MD [address] [place] [address] Social History Tobacco Use Types Packs/Day Years [...] Description 03/25/2025 1:00 PM EDT Office Visit [facility] MED & PEDS [address] [place] [address] Issa Laird MD [address] [place] [address] documented as of this encounter Visit Diagnoses Not on filedocumented in this encounter Additional Health Concerns Assessment Noted Time PHQ-9 Depression Total Score: 0 08/14/19 23 2:52 PM EST documented as of this encounter Care Teams Import Specialist Relationship Specialty Start Date End Date Issa Laird MD [address] [place] [address] PCP - General Internal Medicine 08/12/18 documented as of this encounter
--- OUTSIDE RECORDS SUMMARY | 2024-12-22 13:17 | XMS_ITS | Encounter Summary ---
Author Organization [employer] Address [address] [facility] 7t [place] [address] Care Team Providers Care Refining Still Operator Name Role Phone Issa Laird MD Primary Care Provider [phone] Encounter Details Date Type Department Care Team (Latest Contact Info) Description 12/22/2024 Travel Social History Tobacco Use Types Packs/Day Years [...] Description 03/25/2025 1:00 PM EDT Office Visit [facility] MED & PEDS [address] [place] [address] Issa Laird MD [address] [place] [address] documented as of this encounter Visit Diagnoses Not on filedocumented in this encounter Additional Health Concerns Assessment Noted Time PHQ-9 Depression Total Score: 0 08/14/19 23 2:52 PM EST documented as of this encounter Care Teams Refining Still Operator Relationship Specialty Start Date End Date Issa Laird MD [address] [place] [address] PCP - General Internal Medicine 08/12/18 documented as of this encounter
--- OUTSIDE RECORDS SUMMARY | 2024-12-22 13:17 | XMS_ITS | Encounter Summary ---
Author Organization [employer] Address [address] [place] [address] 7 [place] [address] Care Team Providers Care Double End Tenon Operator Name Role Phone Issa Laird MD Primary Care Provider [phone] Encounter Details Date Type Department Care Team ([facility] Contact Info) Description 01/21/2023 Telephone [facility] MED & PEDS [address] [place] [address] Issa Laird MD [address] [place], [place] [phone] Social History Tobacco Use Types Packs/Day Years Used Date Smoking Tobacco: Never Passive Smoke Exposure: Never Smokeless Tobacco: Never Alcohol Use Standard Drinks/Week Comments Never 0 (1 standard drink = 0.6 oz pur e alcohol) Depression Answer Date Recorded Patient Health Questionnaire-9 Score 0 08/14/2022 Depression Answer Date Recorded Patient Health Questionnaire-2 [...] Encounters Date Type Department Care Team (Late Contact Info) Description 03/25/2025 1:00 PM EDT Office Visit [facility] MED & PEDS [address] [place], [place] [phone] Issa Laird MD [address] [place], [place] [phone] documented as of this encounter Visit Diagnoses Not on filedocumented in this encounter Additional Health Concerns Assessment Noted Time PHQ-9 Depression Total Score: 0 08/14/19 23 2:52 PM EST documented as of this encounter Care Teams Double End Tenon Operator Relationship Specialty Start Date End Date Issa Laird MD [address] [place] [address] PCP - General Internal Medicine 08/12/18 documented as of this encounter
[2024-12-22 14:14] LABS: MANUAL DIFF FLAG NO
[2024-12-22 14:22] LABS: Basophils Percent Auto 0.6 % (0-2); Eosinophils Absolute Auto 0.1 X10*3/uL (0.0-0.4); Eosinophils Percent Auto 1.4 % (0-4); Hematocrit 34.8 % (37.0-47.0); Hemoglobin 11.7 g/dl (12.0-16.0); Imm Gran Abs Auto 0.02 X10*3/uL (0.00-0.03); Imm Gran Pct Auto 0.3 % (0.0-0.4); Lymphocytes Absolute Auto 2.1 X10*3/uL (1.2-4.9); Lymphocytes Percent Auto 29.3 % (20-40); Mean Corpuscular HGB Conc 33.6 g/dl (31.0-35.0); Mean Corpuscular Hemoglobin 26.7 pg (27.0-33.0); Mean Corpuscular Volume 79.3 fL (80.0-98.0); Mean Platelet Volume 10.4 fL (9.4-12.3); Monocytes Absolute Auto 0.4 X10*3/uL (0.1-1.2); Monocytes Percent Auto 5.2 % (2-11); Neutrophils Absolute Auto 4.6 x10*3/uL (2.0-8.3); Neutrophils Percent Auto 63.2 % (45-73); Platelet Count 324 X10*3/uL (160-400); Red Blood Count 4.39 X10*6/uL (4.20-5.50); Red Cell Distribution Width 13.3 % (11.0-16.0); White Blood Count 7.3 X10*3/uL (4.8-10.8)
[2024-12-22 14:41] LABS: Creatinine Urine 53.15 mg/dL; Microalbumin Urine < 5.0 mg/L
[2024-12-22 14:48] LABS: Alanine Aminotransferase 16 U/L (0-31); Albumin Level 4.2 g/dL (3.5-5.0); Alkaline Phosphatase 96 U/L (39-117); Anion Gap 14 (12-20); Aspartate Amino Transferase 17 U/L (5-31); Bilirubin Total 0.4 mg/dL (0.0-1.0); Blood Urea Nitrogen 16 mg/dL (9-16); Calcium 9.4 mg/dL (8.4-10.2); Carbon Dioxide 25 mmol/L (22-29); Chloride 102 mmol/L (96-108); Cholesterol 206 mg/dL (<200); Estimated Glomerular Filt Rate > 60; Glucose Random 192 mg/dL (60-115); HDL Cholesterol 54 mg/dL (>40); LDL Cholesterol Calculated 128 mg/dL (<100); Potassium 4.6 mmol/L (3.3-5.1); Sodium 136 mmol/L (135-145); Total Protein 7.5 g/dL (6.5-8.0); Triglycerides 123 mg/dL (<150)
[2024-12-22 14:54] LABS: TSH reflex Free T4 2.46 uIU/mL (0.32-4.0)
[2024-12-23 08:52] LABS: ~HepC Num1 0.15 S/CO (0.00-0.79); ~Hepatitis C Antibody Nonreactive (Nonreactive)
== END 2024-12-22 11:53 | disposition home or self-care (01) ==
LOC: HO.CHCLDS 11:52
PROVIDERS: Visit Provider Internal Medicine
DX: I10 Essential (primary) hypertension (principal); E11.65 Type 2 diabetes mellitus with hyperglycemia; Z79.4 Long term (current) use of insulin; J40 Bronchitis, not specified as acute or chronic
CPT/HCPCS: 36415; 80053; 80061; 82043; 82570; 84443; 85025; 86803